=== PATIENT | female | born 1935 | race Caucasian/White ===

== ENCOUNTER 2016-10-29 14:24 | Observation (INO) | payer MEDICARE, OTHER ==
--- OUTSIDE RECORDS SUMMARY | 2016-10-29 14:29 | XMS REPORT | Continuity of Care Document ---
:1935 Author Organization [facility] Address Unavailable [place] [address] Care Team Providers Name Role Phone MickieKelechi magaña Primary Care Provider [phone] Source Comments This disclosure is being made pursuant to the [employer]uity [employer] program and maynot contain all information available regarding this patient.[facility] Active Allergies and Adverse Reactions No Known Allergies Current Medications Be aware that medications may not be up to date as of this document. Alwaysverify current medications with the patient. Prescription Sig. Disp. Refills Start Date End Date Status HYDROcodone-acetaminoph Take 1-2 tablets 60 tablet 0 10/27/2014 Active en (NORCO) 5-325 MG per by mouth every 4 tablet (four) hours as needed for Pain. aspirin 81 MG EC tablet Take 81 mg by Active mouth daily. Glucose Blood (ASCENSIA by In Vitro Active BREEZE 2 ) route. saline (AYR) 0.65 % 1 spray by Nasal Active (SOLN) nasal spray route 2 (two) times daily as needed for Congestion. SIMVASTATIN PO Take 0.5 tablets Active by mouth daily. GLIPIZIDE PO Take 2 tablets by Active mouth 2 (two) times daily. ENALAPRIL-HYDROCHLOROTH Take 1 tablet by Active IAZIDE PO mouth 2 (two) times daily. metoprolol tartrate Take 50 mg by Active (LOPRESSOR) 50 MG mouth 2 (two) tablet times daily. metFORMIN (GLUCOPHAGE) Take 250 mg by Active 500 MG tablet mouth 2 (two) times daily with meals. metformin (GLUCOPHAGE) Take 1,000 mg by Active 1000 MG tablet mouth 2 (two) times daily with meals. LEVOTHYROXINE SODIUM PO Take by mouth. Active Active Problems Problem Noted Date Aftercare following surgery of the musculoskeletal system, NEC 11/20/2014 Pain in joint, hand 11/20/2014 Stiffness of joint, not elsewhere classified, hand 11/20/2014 Dupuytren's contracture 10/27/2014 Most Recent Encounters Date Type Specialty Providers Description 10/18/2016 Data Import Social History Tobacco Use Types Packs/Day Years Used Date Former Smoker Alcohol Use Drinks/Week oz/Week Comments No Last Filed Vital Signs Vital Sign Reading Time Taken Blood Pressure 150/61 12/06/2014 2:57 PM CDT Pulse 76 10/27/2014 11:28 AM CDT Temperature - - Respiratory Rate 16 10/27/2014 11:28 AM CDT Height 1.57 m (5' 1.8") 12/06/2014 2:57 PM CDT Weight 83.008 kg (183 lb) 12/06/2014 2:57 PM CDT Body Mass Index 33.68 12/06/2014 2:57 PM CDT Oxygen Saturation - - Plan of Care Health Maintenance Due Date Last Done Comments Lab-Lipids 1935 LAB-HgA1C 12/19/1939 Eye (Ophthalmology) Exam 1944 Foot Exam 1944 Lab-Urine Microalbumin 1944 Tetanus/Pertussis (1 - Tdap) 1953 Well Adult Visit 1984 Zoster Vaccine 60+ 1994 Bone Density 12/19/1999 Pneumococcal Low/Medium Risk 65+ (1 of 2 - PCV13) 12/19/1999 Influenza Immunization (#1) 2016 Results from Last 3 Months Not on file
--- OUTSIDE RECORDS SUMMARY | 2016-10-29 14:29 | XMS REPORT | Continuity of Care Document ---
:1935 Author Organization [facility] ([facility]) Address [address] [place] [address] Phone [phone] Care Team Providers Name Role Phone Provider, No-Primary Care Primary Care Provider Unavailable Source Comments This disclosure is being made pursuant to the Care Everywhere program, applicable federal and state laws, and may not contain all informaitonavailable regarding this patient.[facility] ([facility]) Active Allergies and Adverse Reactions Not on File Current Medications Not on file Active Problems Not on file Social History Tobacco Use Types Packs/Day Years Used Date Never Assessed Plan of Care Health Maintenance Due Date Last Done Comments Hepatitis B Vaccine (1 of 3 - Primary Series) 1935 Tdap Vaccine 1945 Lipid Disorder Screening 1952 Td Vaccine 1952 Colonoscopy 12/17/1984 Zoster Vaccine 1994 Osteoporosis Screening (DXA Bone Density) 12/19/1999 Pneumococcal Vaccine (1 of 2 - PCV13) 12/19/1999 Influenza Vaccine: Seasonal (#1) 02/20/2016 Results from Last 3 Months Not on file
[2016-10-29 14:43] LABS: Hematocrit 27.7 % (37.0-47.0); Hemoglobin 9.2 gm/dL (12.5-16.0); Mean Cell Volume 84.7 fl (78-100); Mean Corpuscular Hemoglobin 28.1 pg (27-31); Mean Corpuscular Hgb Conc 33.2 g/dl (32-36); Mean Platelet Volume 9.7 fl (6.0-9.5); Neutrophil % 76.7 % (42-75.0); Platelet Count 237 K/mm3 (150-450); Red Blood Count 3.27 M/mm3 (4.2-5.4); Red Cell Distribution Width 16.3 % (11.5-14.0); White Blood Count 6.5 K/mm3 (4.0-10.5)
[2016-10-29 15:01] LABS: Troponin I 0.024 ng/ml (0.00-0.10)
[2016-10-29 15:03] LABS: Albumin * 3.5 gm/dl (3.4-5.0); Anion Gap 15.6 mmol/L (6.8-13.8); BUN/Creatinine Ratio 9.6 (9.0-21.6); Bilirubin, Total 0.5 mg/dL (0.0-1.1); Ca. Corrected For Albumin 8.5 mg/dL (8.4-10.2); Calcium * 8.4 mg/dL (7.9-10.9); Carbon Dioxide 24.3 mmol/L (24-32.6); Potassium 3.9 mmol/L (3.4-4.6); Total Protein 7.6 gm/dL (6.2-8.2)
[2016-10-29] MEDS ORDERED: METOLAZONE 2.5 MG TABLET PO ONE (16:30)
[2016-10-29 16:36] LABS: Iron 20 mcg/dL (35-120); Transferrin Sat. (% Sat.) 5 % (15-55)
[2016-10-29] MEDS ORDERED: FUROSEMIDE 10 MG/ML VIAL IV ONE (17:00)
[2016-10-29] MEDS ORDERED: SPIRONOLACTONE 25 MG TABLET PO ONE (17:00)
--- NOTE | 2016-10-29 17:00 | HP ---
Chief Complaint - Chief Complaint Date of Service: 10/29/16 Time of Service: 16:58 Chief Complaint: Swelling in her feet and shortness of breath for the last 2-3 days. History of Present Illness: Patient is a 80-year-old WF with a history of HTN, T2 DM, HLD, hypothyroidism, B12 deficiency who came in to the office with her granddaughter because of SOB, DELACRUZ and swelling in her feet for the last 2-3 days. She denies H/O palpitations , CP, lightheadedness, PND/orthopnea. Examination revealed few crackles and 2+ edema in lower extremities. Significant labs: H/H 9.2/27.7, BNP 2666, EKG-A. fib [prior EKG NSR]. She was admitted into observation for further care and treatment on 10/29/2016. 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 Patient History - Cancer: No Hx of Cancer Additional Info: PAST SURGICAL HISTORY: T&A 194; D&C 1956; I UD insertion now embedded 1969; colonoscopy WNL 2005; DAMIEN 2007; EGD with biopsy-pangastritis, CLOtest -2008. Patient History - Other: None LMP (females 10-50): unknown - Family History Mother Family History - Medical: - 79HTN, DM, PCM Father Family History - Medical: - 86HTN, DM, CAD, CRF - Social History Living Situations: alone Abuse History: No History of abuse Psych History: No pertinent hx Smoking Status: Former smoker - 1 PPD 40 years Have you smoked in the past 12 months: No Do you dip or chew tobacco: No Smoking Stop Date: 10/08/93 Patient requests Smoking Cessation Consult: No Initiate information on Smoking Cessation: No Alcohol Use: rarely Drug Use: none - Immunizations Immunizations Up to Date: Yes Hx Pneumococcal Vaccination: Yes History of Influenza Vaccine: Yes Review Of Systems (GEN) - Review of Systems Generalized/Overall Review: Present: Fatigue. Absent: Diaphoresis Respiratory: Present: Cough, Shortness of Breath. Absent: Wheezing Cardiac: Present: Edema. Absent: Chest Pain Abdominal: Absent: Nausea, Vomiting Musculoskeletal: Absent: Joint Pain, Back Pain Neurological: Absent: Headache, Anxiety, Depressed Immunizations: IMMUNIZATION HX Immunizations Up to Date Yes History of Influenza Vaccine Yes Hx Pneumococcal Vaccination Yes Allergies/Adverse Reactions: Allergies Allergy/AdvReac Type Severity Reaction Status Date / Time Iodinated Contrast Media - Allergy Unknown Verified 10/29/16 16:10 Oral and Sulfa (Sulfonamide AdvReac Intermediate Severe Verified 10/29/16 16:10 Antibiotics) nausea Home Medications: HOME MEDICATIONS Aspirin [Aspirin EC] 81 mg PO DAILY 03/28/16 [Last Taken Unknown] Levothyroxine Sodium [Synthroid] 200 mcg PO DAILY 03/28/16 [Last Taken Unknown] Metoprolol Tartrate [Lopressor] 25 mg PO BID 03/28/16 [Last Taken Unknown] Simvastatin [Zocor] 10 mg PO DAILY 03/28/16 [Last Taken Unknown] glipiZIDE [Glucotrol Xl] 10 mg PO BID 03/28/16 [Last Taken Unknown] metFORMIN HCL [Metformin HCl ER] 1,250 mg PO BID 03/28/16 [Last Taken Unknown] Cholecalciferol [Vitamin D] 1,000 unit PO DAILY 10/29/16 [Last Taken Unknown] Cyanocobalamin (Vitamin B-12) [Vitamin B12] 1,000 mcg PO DAILY 10/29/16 [Last Taken Unknown] Pioglitazone HCl [Actos] 30 mg PO DAILY 10/29/16 [Last Taken Unknown] Ranitidine HCl [Acid [employer]] 150 mg PO HS PRN 10/29/16 [Last Taken Unknown] Exam - Exam Vital Signs: Vital Signs - Last Taken Temp 36.5 C 10/29/16 14:32 Pulse 70 10/29/16 14:32 Resp 20 10/29/16 14:32 BP 188/98 10/29/16 14:32 Pulse Ox 95 10/29/16 14:32 Constitutional: Present: Elderly, Obese - alert and oriented x3. ENT Exam: Present: pharynx normal, moist mucous membranes Eye Exam: bilateral eye: PERRL, EOMI Neck: Present: normal inspection, trachea midline Respiratory: Present: decreased breath sounds, crackles - at the bases. Absent : no accessory muscle use Cardiovascular/Chest: Present: regular rate, rhythm. Absent: tachycardia Peripheral Pulses: carotid (R): 2+, carotid (L): 2+ Abdomen: Present: Normal bowel sounds, soft, nontender, nondistended, obese /Rectal: Present: Exam deferred Extremity: Present: normal inspection, lower extremity edema Skin Exam: Present: warm/dry, pallor Eye contact: Present: cooperative, good eye contact, normal speech Diagnostic Studies: Laboratory Tests 10/29/16 14:35 WBC 6.5 Hgb 9.2 L Hct 27.7 L Plt Count 237 10/29/16 14:35 Plasma Sodium 136 Potassium 3.9 Chloride 98 Carbon Dioxide 24.3 BUN 11 Creatinine 1.14 Est GFR (Non-Af Amer) 49 L Random Glucose 217 H Calcium Adj for Albumin 8.5 Total Bilirubin 0.5 AST 22 ALT 20 Alkaline Phosphatase 39 L Total Protein 7.6 Albumin 3.5 magnesium 1.1 10/29/16 14:33 Iron 20 L TIBC 389 Transferrin % Sat 5 L Troponin I 0.024 B-Natriuretic Peptide 2666 H TSH 0.413 CXR 10/29/16: 14:31. 1. Mildly enlarged cardiac silhouette. 2. Mild prominence of interstitial markings in both lung bases with tiny effusions, suggesting mild interstitial edema. Correlation required EKG: New onset A. fib rate 60-70/m w/o acute changes. Assessment/Plan - Narrative Narrative: 1. New-onset CHF: Confirmed by clinical exam and CXR. Metolazone 1.25 mg PO x1 followed by furosemide 60 mg IV 1 and spironolactone 25 mg PO x1 30 min later. BNP 2666. Troponin negative. Daily weights; strict I'/O's. Obtain echocardiogram in a.m. BMP in AM. 2. New-onset A. fib: Check TSH. Lanoxin 0.25 mg IV every 6 hours and and diltiazem PO. Hold Lanoxin if HR below 80/m. 3. Iron deficiency anemia: H&H dropped from 11.0/32.0 [09/20/16] to 9.2/27.7[10/29/16] - could be dilutional due to CHF/true drop. T sat 5%; B12 pending at the time of dictation. Hemoccult all stools. Last colonoscopy in 2005. 4. T2 DM with microalbuminuria: A1c 8.3 [09/20/2016] at which time Actos was added. D/C Actos due to current CHF. D/C glipizide. Discussed this with patient. Add Lantus 20 units at bedtime. 5. Hypertension: Patient on lisinopril 30 mg PO daily and metoprolol 25 mg PO BID. D/C metoprolol and add diltiazem ER 180 mg PO HS which should help control HR and help with albuminuria. 6. Anticoagulation: Discussed colonoscopy, drop in H&H, anemia and warfarin. Patient would prefer getting a colonoscopy prior to going on anticoagulation. 7. Hypomagnesemia: Magnesium level at 1.1. Patient asymptomatic. Occasional PVCs. Magnesium oxide 400 mg PO x2 doses tonight, and again in AM. 8. Hypothyroidism: Patient on levothyroxine 200 g PO daily. TSH WNL at 0.413.
[2016-10-29] MEDS ORDERED: FAMOTIDINE 20 MG TABLET PO PRN (18:30)
[2016-10-29] MEDS ORDERED: DILTIAZEM HCL 240 MG CAP.SR.24H PO SCH (18:45)
[2016-10-29] MEDS: DIGOXIN 0.25 MG/ML AMPUL IV SCH (19:44)
[2016-10-29] MEDS: MAGNESIUM OXIDE 400 MG TABLET PO SCH (19:46)
[2016-10-29] MEDS ORDERED: INSULIN GLARGINE,HUM.REC.ANLOG 100 UNITS/ML VIAL SC ONE (20:00)
[2016-10-29] MEDS ORDERED: DILTIAZEM HCL 180 MG CAP.SR.24H PO SCH (20:00)
[2016-10-29] MEDS ORDERED: METOPROLOL TARTRATE 50 MG TABLET PO SCH (21:00)
[2016-10-29] MEDS ORDERED: LISINOPRIL 10 MG TABLET PO SCH (21:00)
[2016-10-30] MEDS: MAGNESIUM OXIDE 400 MG TABLET PO SCH ×3 (00:11→12:57)
[2016-10-30] MEDS: DIGOXIN 0.25 MG/ML AMPUL IV SCH ×2 (00:17→05:57)
[2016-10-30 05:53] LABS: Anion Gap 9.4 mmol/L (6.8-13.8); BUN/Creatinine Ratio 11.5 (9.0-21.6); Calcium * 9.5 mg/dL (7.9-10.9); Carbon Dioxide 34.8 mmol/L (24-32.6); Estimated Creat Clear 34.7; Potassium 3.2 mmol/L (3.4-4.6)
[2016-10-30] MEDS ORDERED: LEVOTHYROXINE SODIUM 100 MCG TABLET ONE (06:26)
[2016-10-30] MEDS ORDERED: LEVOTHYROXINE SODIUM 25 MCG TABLET PO SCH (07:00)
[2016-10-30] MEDS ORDERED: LISINOPRIL 20 MG TABLET PO SCH (09:00)
[2016-10-30] MEDS ORDERED: MAGNESIUM OXIDE 400 MG TABLET PO SCH (09:00)
--- NOTE | 2016-10-30 09:02 | DS ---
(1) Heart failure with preserved left ventricular function (HFpEF) Diagnosis(s): EF 65%, mild MR, trace TR, RVSP 32 mm Hg, LV hyperdynamic, LVWM normal. Problem: Acute (2) New onset a-fib Problem: Acute (3) Fe deficiency anemia Diagnosis(s): with Tsat 5% Problem: Acute Qualifiers: Iron deficiency anemia type: unspecified iron deficiency Qualified Code(s) : D50.9 - Iron deficiency anemia, unspecified (4) Diabetes mellitus type 2 with complications, uncontrolled Diagnosis(s): renal and ophthalmic. Problem: Chronic (5) Obesity Diagnosis(s): BMI-35.0 Problem: Chronic Description of Stay: DATE OF ADMISSION: 10/29/2016. DATE OF DISCHARGE: 10/30/2016. DIAGNOSTICS: 2-D ECHOCARDIOGRAM: 10/30/2016. HOSPITAL COURSE: Tri Roche is a 80-year-old WF who was admitted on 10/29/2016 due to bilateral L.L.E., SOB and DELACRUZ. PMH is significant for HTN, T2 DM, HLD, hypothyroidism, B12 deficiency and obesity[ BMI-35.0]. Findings included new onset A. fib, CHF and anemia.[ BNP 2666]. CHF was confirmed by CXR which showed interstitial edema and and enlarged cardiac silhouette. Patient was diuresed with improvement in her CHF, sob and edema. There was improvement in her weight. There was a drop in H&H from 11.0/32.0 [09/20/16] to 9.2/27.7 [10/29/16] with Tsat 5%. B12 426 pg per mL. Hemoccult was negative. Last colonoscopy was in 2005. She did develop A. fib with RVR with a heart rate of 120-130/ min which was controlled with Lanoxin 0.25 mg IV every 6 hours. She was switched over to diltiazem ER 240 mg PO HS which should help with controlling heart rate. Metoprolol was DC'd. Echocardiogram: 10/29/2016: EF 65%, mild MR, mild TR, RVSP 32 mm Hg. Pioglitazone 30 mg and glipizide were discontinued. Lantus 30 units at bedtime was started. Continue metformin ER 500 mg 2 tabs PO BID WM. Patient did have a low magnesium level of 1.1. This was corrected in the hospital. She was advised to go on magnesium oxide 400 mg daily. Discussed in detail regarding anticoagulation, anemia, drop in H&H and EGD/ colonoscopy. Patient would like to have a workup prior to going on anticoagulation. The risks and benefits of not being on a blood thinner with increased incidence of a stroke vs bleeding were explained to the patient and the family. She will be on a regular aspirin 325 mg instead of 81 mg daily. Patient is to receive Feraheme 510 mg IV 2 and an outpatient basis approximately 10 days apart. All the medication changes were clearly explained to the patient. Greater than 60 minutes was spent with the patient discussing the plan of care , discharging planning, reconciliation of medications, preparing and dictating discharge summary. Procedures Performed: none Results and Findings: 10/29/16 14:35 WBC 6.5 Hgb 9.2 L Hct 27.7 L Plt Count 237 10/29/16 10/30/16 14:35 05:20 Plasma Sodium 136 136 Potassium 3.9 3.2 L Chloride 98 95 L Carbon Dioxide 24.3 34.8 BUN 11 11 Creatinine 1.14 0.96 Est GFR (Non-Af Amer) 49 L 59 L Random Glucose 217 H 118 Calcium Adj for Albumin 8.5 9.5 Total Bilirubin 0.5 AST 22 ALT 20 Alkaline Phosphatase 39 L Total Protein 7.6 Albumin 3.5 magnesium 1.1 1.0 L 10/29/16 14:33 Iron 20 L TIBC 389 Transferrin % Sat 5 L Troponin I 0.024 B-Natriuretic Peptide 2666 H TSH 0.413 CXR 10/29/16: 14:31. 1. Mildly enlarged cardiac silhouette. 2. Mild prominence of interstitial markings in both lung bases with tiny effusions, suggesting mild interstitial edema. Correlation required EKG: New onset A. fib rate 60-70/m w/o acute changes. ECHOCARDIOGRAM: 10/30/2016: EF 65%. LV hyperdynamic. Mild MR, trace TR, RVSP 32 mm Hg. 10/29/16 10/30/16 14:32 05:03 Weight 89.471 kg 85.275 kg 10/30/16 10/30/16 07:58 12:50 Stool Occult Blood Negative Negative Discharge Disposition: Home self care Disposition: Home self-care Condition: Stable Discharge Activity: Activity as tolerated Discharge Diet: Consistent carbs, Low fat/chol Referrals: Kelechi Garcia MD [Primary Care Provider] - Problem Oriented Discharge Instructions to Patient/Family: CHF Patient Instructions Additional Patient Instructions (free text): Follow up with Dr. Jauregui 4.20 at 1:30. for possible EGD/ Colonoscopy -Fe def. anemia. Please give information to patient on afib Follow up with Dr. Culp 11/02 at 9:45 Feraheme IV to be given in [facility] [place] today(10/30/16) and on 11/09/16. Please arrange through the [place] for Feraheme to be given as outpatient approximately 10 days apart. Aspirin 325 mg, magnesium oxide 400 mg and vitamin D3 2000 units are over-the- counter [OTC] and may be cheaper if bought in a bottle in a 100. Please stagger BS once a day. NEW/NEW DOSES of Medications: Aspirin 325 mg PO daily. Magnesium oxide 400 mg PO daily. Lantus 30 units SQ at bedtime. Diltiazem ER 240 mg PO at bedtime. Metformin ER 500 mg 2 tabs PO BID WM. Atorvastatin 10 mg PO daily. Vitamin D3 2000 units PO daily w/food DISCONTINUED medications : Actos. Glipizide. Metformin 1250 mg PO BID. Simvastatin 10 mg. ASA 81 mg daily. Vitamin D3 1000 units daily. Prescriptions (Any new or edited meds): Aspirin [Aspirin EC] 325 mg PO DAILY #[address] tablet[address] Randall Calcium 10 mg PO DAILY #30 tablet Cholecalciferol [Vitamin D] 2,000 unit PO DAILY #100 capsule Diltiazem HCl [Cardizem Cd] 240 mg PO HS #30 cap.sr.24h Ferumoxytol [Feraheme] 510 mg IV Q10D #2 vial Insulin Glargine,Hum.rec.anlog [Lantus] 30 units SC HS #1 vial Lisinopril [Zestril] 30 mg PO DAILY@0700 #.1 tablet metFORMIN HCL [Glucophage Xr] 1,000 mg PO BIDWM #180 tab.sr.24h Complete Home Medications List: Complete Home Medication List: Levothyroxine Sodium [Synthroid] 200 mcg PO DAILY@0700 03/28/16 Cyanocobalamin (Vitamin B-12) [Vitamin B12] 1,000 mcg PO DAILY 10/29/16 Aspirin [Aspirin EC] 325 mg PO DAILY #30 tablet. 10/30/16 Atorvastatin Calcium 10 mg PO DAILY #30 tablet 10/30/16 Cholecalciferol [Vitamin D] 2,000 unit PO DAILY #100 capsule 10/30/16 Diltiazem HCl [Cardizem Cd] 240 mg PO HS #30 cap.sr.24h 10/30/16 Ferumoxytol [Feraheme] 510 mg IV Q10D #2 vial 10/30/16 Insulin Glargine,Hum.rec.anlog [Lantus] 30 units SC HS #1 vial 10/30/16 Lisinopril [Zestril] 30 mg PO DAILY@0700 #.1 tablet 10/30/16 metFORMIN HCL [Glucophage Xr] 1,000 mg PO BIDWM #180 tab.sr.24h 10/30/16 Amb Orders for Discharge: Basic Metabolic Panel Time Frame: 10/26/16, Location: Determined By Patient
[2016-10-30] MEDS ORDERED: SPIRONOLACTONE 100 MG TABLET PO ONE (09:45)
[2016-10-30 10:10] VITALS: BP 159/49
[2016-10-31] MEDS ORDERED: LEVOTHYROXINE SODIUM 100 MCG TABLET PO SCH (07:00)
--- NOTE | 2016-10-31 09:16 | ECHO ---
This report is available in the EMR
== END 2016-10-30 16:16 | disposition home or self-care (01) ==
LOC: MS 14:24
PROVIDERS: ADMIT Internal Medicine; ATTEND Internal Medicine
DX: I50.31 Acute diastolic (congestive) heart failure (principal); E03.9 Hypothyroidism, unspecified; D50.9 Iron deficiency anemia, unspecified; I48.91 Unspecified atrial fibrillation; E66.9 Obesity, unspecified; I10 Essential (primary) hypertension; E78.5 Hyperlipidemia, unspecified; E53.8 Deficiency of other specified B group vitamins; Z87.891 Personal history of nicotine dependence; E11.9 Type 2 diabetes mellitus without complications; R80.9 Proteinuria, unspecified
CPT/HCPCS: 36415; 71020; 80048; 80053; 82272; 82607; 83540; 83550; 83735; 83880; 84443; 84484; 85025; 93005; 93306; 96374; 96375; 96376; G0378; G0379

== ENCOUNTER 2016-11-27 07:05 | Day surgery (SDC) | payer MEDICARE, OTHER ==
[~2016-11-27 07:05] MED LIST: RINGERS SOLUTION,LACTATED 1,000 ML IV PRN
--- OUTSIDE RECORDS SUMMARY | 2016-11-27 07:09 | XMS REPORT | Continuity of Care Document ---
:1935 Author Organization [facility] ([facility]) Address [place] [address] Phone [phone] Care Team Providers Name Role Phone Provider, No-Primary Care Primary Care Provider Unavailable Source Comments This disclosure is being made pursuant to the Care Everywhere program, applicable federal and state laws, and may not contain all informaitonavailable regarding this patient.[facility] ([facility]) Active Allergies and Adverse Reactions Not on [...]
--- OUTSIDE RECORDS SUMMARY | 2016-11-27 07:09 | XMS REPORT | Continuity of Care Document ---
:1935 Author Organization [facility] Address Unavailable [place] [address] Care Team Providers Name Role Phone MickieKelechi magaña Primary Care Provider [phone] Source Comments This disclosure is being made pursuant to the [employer] program and maynot contain all information available regarding this patient.[facility] Active Allergies and Adverse Reactions No Known [...] elsewhere classified, hand 11/20/2014 Dupuytren's contracture 10/27/2014 Social History Tobacco Use Types Packs/Day Years [...]
[2016-11-27] MEDS ORDERED: DEXTROSE 5%-LACTATED RINGERS 1,000 ML IV ONE (07:51)
[2016-11-27 10:00] VITALS: BP 143/74
--- NOTE | 2016-11-27 15:21 | OR ---
Operative Report - Dictated Report Narrative: Date: 11/27/2016 Preop Diagnosis: Anemia, GERD, Abdominal discomfort Postop Diagnosis: EGD: Diffuse gastritis, Hiatal Hernia. Colonoscopy: Severe diverticulosis, Polyp at 50 cm. Procedure: Esophagogastrodeuodenoscopy, Colonoscopy. Staff surgeon: Tevin Tanner MD Proctoring surgeon: Chucky Jones MD Complications: Bradycardia during colonoscopy Anesthesia: MAC per [employer] EBL: Minimal Description: Informed consent was obtained. Patient was taken to the endoscopy suite and placed in the supine position. Bite block was inserted. IV sedation was administered per [employer]. Endoscope inserted through bite block. Advanced under direct vision trough the posterior pharynx, through the esophagus through the stomach, into the duodenum. The duodenum was grossly normal without ulceration. The stomach had moderately severe diffuse gastritis without ulceration. Retroflex view shows small hiatal hernia. Antral cold biopsy taken for GAGE test and anatomic pathology. Slight reflux esophagitis at GE junction. Cold biopsy taken of this finding. Scope was withdrawn with no additional findings. She tolerated this portion of the procedure well. Patient was placed in the left lateral decubitus position. Flexible video colonoscopy is introduced and advanced without difficulty to 50 cm where a polyp is encountered. This is biopsied with hot forceps and residual polyp is destroyed with electrocautery. The scope was advanced to mid-transverse when the patient experienced significant bradycardia and therefore the scope was withdrawn. No other abnormalities were identified to that point othere than severe sigmoid diverticulosis. The procedure was terminated at this point even though her heart rate had returned to normal. The patient otherwise tolerated these procedures well and was discharged from the endoscopy suite in stable condition.
== END 2016-11-27 07:06 | disposition home or self-care (01) ==
LOC: AMB 07:05
PROVIDERS: ATTEND Specialist
PROC: 0DBE8ZX Excision of Large Intestine, Via Natural or Artificial Opening Endoscopic, Diagnostic (ICD-10-PCS; 2016-11-27)
PROC: 0DB48ZX Excision of Esophagogastric Junction, Via Natural or Artificial Opening Endoscopic, Diagnostic (ICD-10-PCS; principal; 2016-11-27 08:00)
PROC: 0DB68ZX Excision of Stomach, Via Natural or Artificial Opening Endoscopic, Diagnostic (ICD-10-PCS; 2016-11-27 08:00)
DX: Z12.11 Encounter for screening for malignant neoplasm of colon (principal); K63.5 Polyp of colon; K57.30 Diverticulosis of large intestine without perforation or abscess without bleeding; K29.70 Gastritis, unspecified, without bleeding; K44.9 Diaphragmatic hernia without obstruction or gangrene; K22.70 Barrett's esophagus without dysplasia; K21.9 Gastro-esophageal reflux disease without esophagitis; E11.9 Type 2 diabetes mellitus without complications; I10 Essential (primary) hypertension; E03.9 Hypothyroidism, unspecified; Z87.891 Personal history of nicotine dependence; Z68.34 Body mass index [BMI] 34.0-34.9, adult; Z80.0 Family history of malignant neoplasm of digestive organs

== ENCOUNTER 2017-01-10 22:09 | Emergency (ER) | payer MEDICARE, OTHER ==
--- OUTSIDE RECORDS SUMMARY | 2017-01-10 22:44 | XMS REPORT | Continuity of Care Document ---
:1935 Author Organization [facility] Address Unavailable [place] [address] Care Team Providers Name Role Phone MickieKelechi magaña Primary Care Provider [phone] Source Comments This disclosure is being made pursuant to the [employer] program and maynot contain all information available regarding this patient.[facility] Active Allergies and Adverse Reactions No Known [...]
[2017-01-10] MEDS ORDERED: ACETAMINOPHEN 325 MG TABLET PO ONE (22:51)
[2017-01-10] MEDS ORDERED: ACETAMINOPHEN 325 MG TABLET ONE (23:01)
[2017-01-10 23:12] VITALS: BP 123/74
[2017-01-10 23:19] LABS: Urine Bilirubin Negative (NEGATIVE); Urine Ketone Negative (NEGATIVE); Urine Nitrite Negative (NEGATIVE); Urine Protein 30 mg/dL (NEGATIVE); Urine Specific Gravity <=1.005 SP.GR. (1.005-1.010); Urine Urobilinogen Normal (NORMAL)
[2017-01-10 23:31] LABS: Urine Appearance Clear; Urine Bacteria 2+; Urine Blood 5 /ul (NEGATIVE); Urine Color Yellow; Urine RBC 0-5 /hpf (0-5); Urine WBC 0-5 /hpf (0-5)
--- NOTE | 2017-01-10 23:52 | ERNOTE ---
Back Pain ER HPI Date of Service: 01/10/17 Time Seen by Provider: 01/10/17 22:31 Source: patient Exam Limitations: no limitations Immunizations: IMMUNIZATION HX Immunizations Up to Date Yes History of Influenza Vaccine Yes Hx Pneumococcal Vaccination Yes Allergies/Adverse Reactions: Allergies Iodinated Contrast Media - Oral and Allergy (Unknown, Verified 11/27/16 07:24) Other affected blood sugars Sulfa (Sulfonamide Antibiotics) Adverse Reaction (Intermediate, Verified 07:24) Severe nausea Home Medications: HOME MEDICATIONS Levothyroxine Sodium [Synthroid] 200 mcg PO DAILY@0700 03/28/16 [Last Taken Unknown] Aspirin [Aspirin EC] 325 mg PO DAILY #30 tablet.dr 10/30/16 [Last Taken Unknown] Diltiazem HCl [Cardizem Cd] 240 mg PO HS #30 cap.sr.24h 10/30/16 [Last Taken Unknown] Insulin Glargine,Hum.rec.anlog [Lantus] 30 units SC HS #1 vial 10/30/16 [Last Taken Unknown] Lisinopril [Zestril] 30 mg PO DAILY@0700 #.1 tablet 10/30/16 [Last Taken Unknown ] metFORMIN HCL [Glucophage Xr] 1,000 mg PO BIDWM #180 tab.sr.24h 10/30/16 [Last Taken Unknown] Atorvastatin Calcium [Lipitor] 10 mg PO HS 11/12/16 [Last Taken Unknown] Cholecalciferol (Vitamin D3) [Vitamin D3] 2,000 unit PO DAILY 11/12/16 [Last Taken Unknown] Magnesium 400 mg PO DAILY 11/12/16 [Last Taken Unknown] Ranitidine HCl [Zantac] 150 mg PO HS 11/12/16 [Last Taken Unknown] Cyanocobalamin (Vitamin B-12) [Vitamin B12] 2,500 mcg PO DAILY 11/27/16 [Last Taken Unknown] Narrative: 81 year old that has been having lower back pain for several years. Over the last three days the pain at the lower back has increased, and radiates to the left. Denies any abdominal pain, radiation to the lower extremities, fevers, chill, or N/V. Denies taking any pain medications for the pain. The pain is worsened by movement. Date (Duration): 01/10/17 Timing: Reports: constant, getting worse Quality/Severity: Reports: severe Location of pain: Reports: lower back Activities at Onset: Reports: activity Possible Precipitating Factor: Reports: turning/bending Modifying Factors - (Improves): Reports: other - being still Modifying Factors - (Worsens): Reports: other - movement Associated Symptoms: Denies: numbess/weakness in legs Prior Treament: Denies: treated by physician Review of Systems - Review of Systems Constitutional: Present: no symptoms reported EYE: Present: no symptoms reported ENT: Present: no symptoms reported Respiratory: Present: no symptoms reported Cardiology: Present: no symptoms reported Gastrointestinal/Abdominal: Present: no symptoms reported Genitourinary: Present: no symptoms reported Musculoskeletal: Present: no symptoms reported Skin: Present: no symptoms reported Neurological: Present: no symptoms reported Endocrine: Present: no symptoms reported - Patient's Past Medical History Patient History - Medical: Anemia, Arthritis, Diabetes Type 2 Insulin Dependent , GERD, Hypothyroidism, Other - CKD stage 3 Patient History - Cardiac/Respiratory: CHF, Hypertension, Hyperlipidemia Patient History - Cancer: No Hx of Cancer Patient History - Surgical Procedures: Colonoscopy, D & C, T & A Patient History - Other: None - Family History Mother Family History - Medical: , Diabetes Type 2 Family History - Cardiac/Respiratory: Hypertension, Other Family History - Cancer: No pertinent family hx Father Family History - Medical: , Diabetes Type 2 Family History - Cardiac/Respiratory: Hypertension, Other Family History - Cancer: Other - Social History Living Situations: alone Abuse History: No History of abuse Psych History: No pertinent hx Smoking Status: Former smoker Alcohol Use: rarely Drug Use: none - Immunizations Immunizations Up to Date: Yes Hx Pneumococcal Vaccination: Yes History of Influenza Vaccine: Yes Physical Exam - Physical Exam General Appearance: Present: alert, no apparent distress Eye Exam: Normal inspection: bilateral Ears, Nose, Throat: Present: normal ENT inspection Neck: Present: normal inspection Respiratory: Present: no respiratory distress Cardiovascular/Chest: Present: regular rate, rhythm Gastrointestinal/Abdominal: Present: nontender Back Exam: Present: normal inspection, no CVA tenderness, no vertebral tenderness, decreased range of motion Extremity Exam: Present: normal inspection Neurological Exam: Present: alert, oriented, normal mood/affect Skin Exam: Present: normal color ED Progress - Results and Orders Patient's Lab Results:: I have reviewed the patient's lab results. - Vital Signs Patient's Vital Signs:: I have reviewed the patient's vital signs. Vital Signs: Vital Signs 01/10/17 01/10/17 22:11 23:12 Temperature 36.2 C L Pulse Rate 64 73 Respiratory 16 15 Rate Blood Pressure 153/51 123/74 O2 Sat by Pulse 98 96 Oximetry - X-Ray X-Ray #1 X-Ray: lumbosacral Interpretation: Interp. by me, Reviewed by me X-ray Comments: Severe DJD of the lumbar spine; particularly at L5- S1 with loss of disc space. - Progress/Reassessment Chief Complaint: Back Pain Progress:: Improved Progress Note-Subjective: 01/10/17 23:51 The pain is slightly less since getting the Tylenol. No complaints of UTi symptoms. 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 Referrals: Kelechi Garcia MD [Primary Care Provider] -
== END 2017-01-11 00:02 | disposition home or self-care (01) ==
LOC: ER 22:09
DX: M47.816 Spondylosis without myelopathy or radiculopathy, lumbar region (principal); Z87.891 Personal history of nicotine dependence; E11.9 Type 2 diabetes mellitus without complications; Z79.4 Long term (current) use of insulin; E03.9 Hypothyroidism, unspecified; E78.5 Hyperlipidemia, unspecified; I10 Essential (primary) hypertension; I50.9 Heart failure, unspecified; K21.9 Gastro-esophageal reflux disease without esophagitis; Z79.899 Other long term (current) drug therapy

== ENCOUNTER 2017-01-18 12:43 | Emergency (ER) | payer MEDICARE, OTHER ==
[2017-01-18] MEDS ORDERED: diphenhydrAMINE HCL 50 MG/ML VIAL IV ONE (12:52)
[2017-01-18] MEDS ORDERED: METHYLPREDNISOLONE SOD SUCC/PF 125 MG/2 ML VIAL IV ONE (12:54)
--- OUTSIDE RECORDS SUMMARY | 2017-01-18 13:00 | XMS REPORT | Continuity of Care Document ---
:1935 Author Organization [employer] Address Unavailable [place] [address] Care Team Providers Name Role Phone MickieKelechi magaña Primary Care Provider [phone] Source Comments This disclosure is being made pursuant to the Move In History program and maynot contain all information available regarding this patient.[employer] Active Allergies and Adverse Reactions No Known [...] from Last 3 Months Not on file Insurance Payer Benefit Plan / Group Subscriber ID Type Phone Address MEDICARE MEDICARE A AND B [id number] [phone] [address] [place] [address] COMMERCIAL [employer]CIAL INSURANCE [id number] Home: [address] [phone] [place] [id number]
[2017-01-18] MEDS ORDERED: DIATRIZOATE MEGLU/DIATRIZO SOD 30 ML BTL PO ONE (13:03)
[2017-01-18] MEDS ORDERED: DIATRIZOATE MEGLU/DIATRIZO SOD 30 ML BTL ONE (13:04)
--- NOTE | 2017-01-18 13:08 | ERNOTE ---
Medical Problem HPI - Narrative Date of Service: 01/18/17 - General Chief Complaint: Nausea/Vomiting Time Seen by Provider: 01/18/17 12:51 Source: family, RN notes reviewed, old records Exam Limitations: no limitations - Immun/Allergies/Home Medications Immunizations: IMMUNIZATION HX Immunizations Up to Date Yes History of Influenza Vaccine Yes Hx Pneumococcal Vaccination Yes Allergies/Adverse Reactions: Allergies Iodinated Contrast Media - Oral and Allergy (Unknown, Verified 01/18/17 12:52) Other affected blood sugars Sulfa (Sulfonamide Antibiotics) Adverse Reaction (Intermediate, Verified 12:52) Severe nausea Home Medications: HOME MEDICATIONS Levothyroxine Sodium [Synthroid] 200 mcg PO DAILY@0700 03/28/16 [Last Taken Unknown] Aspirin [Aspirin EC] 325 mg PO DAILY #30 tablet.dr 10/30/16 [Last Taken Unknown] Diltiazem HCl [Cardizem Cd] 240 mg PO HS #30 cap.sr.24h 10/30/16 [Last Taken Unknown] Insulin Glargine,Hum.rec.anlog [Lantus] 30 units SC HS #1 vial 10/30/16 [Last Taken Unknown] Lisinopril [Zestril] 30 mg PO DAILY@0700 #.1 tablet 10/30/16 [Last Taken Unknown ] metFORMIN HCL [Glucophage Xr] 1,000 mg PO BIDWM #180 tab.sr.24h 10/30/16 [Last Taken Unknown] Atorvastatin Calcium [Lipitor] 10 mg PO HS 11/12/16 [Last Taken Unknown] Cholecalciferol (Vitamin D3) [Vitamin D3] 2,000 unit PO DAILY 11/12/16 [Last Taken Unknown] Magnesium 400 mg PO DAILY 11/12/16 [Last Taken Unknown] Ranitidine HCl [Zantac] 150 mg PO HS 11/12/16 [Last Taken Unknown] Cyanocobalamin (Vitamin B-12) [Vitamin B12] 2,500 mcg PO DAILY 11/27/16 [Last Taken Unknown] HYDROcodone/ACETAMINOPHEN [Keller 5-325] 1 each PO Q4H PRN #15 tablet 01/11/17 [ Last Taken Unknown] Ciprofloxacin HCl 500 mg PO BID #20 tablet 01/18/17 [Last Taken Unknown] Meclizine HCl [Antivert] 25 mg PO QID PRN #20 tablet 01/18/17 [Last Taken Unknown] Ondansetron HCl [Zofran] 1 - 2 mg PO Q8H PRN #30 tab 01/18/17 [Last Taken Unknown] metroNIDAZOLE [Flagyl] 500 mg PO Q8H #30 tablet 01/18/17 [Last Taken Unknown] - History of Present History Narrative: This is an 81-year-old female who comes to the emergency department with complaint of nausea, vomiting, abdominal pain, decreased caliber of the stool, dizziness, malaise. The symptoms have been present for at least 3 weeks. A review of the past medical records demonstrates that she was seen on the . At that time I believe she had some basic labs done which were essentially normal. A very slight drop in her hemoglobin. She had a colonoscopy back in November. This demonstrated a single polyp. The colonoscopy could not be completed to the ascending colon origin due to bradycardia. The patient says that whenever she eats she gets severely nauseated and throws up. She says her weight has been fluctuating. She denies having any blood in her stool, but states "I poop pencils" when I asked her what this means she says that the diameter of the stool is about that of a pencil. Patient denies any urinary symptoms. She says that she gets dizzy when she changes position rapidly. This has been present for several months. The patient denies any chest pain, shortness of breath, cough, fever, chills. Timing: intermittent - happens with meals Severity: moderate Modifying Factors - (Improves): Present: other - avoiding food, laying still Modifying Factors - (Worsens): Present: eating, movement Review of Systems - Narrative Narrative: As per HPI - Review of Systems Constitutional: Present: fatigue, malaise EYE: Present: no symptoms reported ENT: Present: no symptoms reported Respiratory: Present: no symptoms reported. Absent: shortness of breath, cough Cardiology: Present: no symptoms reported. Absent: chest pain Gastrointestinal/Abdominal: Present: See HPI, nausea, vomiting, abdominal pain, other - change in the caliber of the stool Genitourinary: Present: no symptoms reported. Absent: frequency, pain, dysuria , decreased urinary output Musculoskeletal: Present: back pain - chronic back pain. No significant recent change Skin: Present: no symptoms reported Neurological: Present: dizziness/light-headedness Endocrine: Present: no symptoms reported Hematologic/Lymphatic: Present: no symptoms reported Psych: Present: no symptoms reported All Other Systems: All systems neg except as marked - Patient's Past Medical History Patient History - Medical: Anemia, Arthritis, Diabetes Type 2 Insulin Dependent , GERD, Hypothyroidism, Other Patient History - Cardiac/Respiratory: CHF, Hypertension, Hyperlipidemia Patient History - Cancer: No Hx of Cancer Patient History - Surgical Procedures: Colonoscopy, D & C, T & A Patient History - Other: None - Family History Mother Family History - Medical: , Diabetes Type 2 Family History - Cardiac/Respiratory: Hypertension, Other Family History - Cancer: No pertinent family hx Father Family History - Medical: , Diabetes Type 2 Family History - Cardiac/Respiratory: Hypertension, Other Family History - Cancer: Other - Social History Living Situations: alone Abuse History: No History of abuse Psych History: No pertinent hx Smoking Status: Former smoker Alcohol Use: rarely Drug Use: none - Immunizations Immunizations Up to Date: Yes Hx Pneumococcal Vaccination: Yes History of Influenza Vaccine: Yes Physical Exam - Physical Exam General Appearance: Present: wd/wn, alert, no apparent distress Eye Exam: Normal inspection: bilateral Ears, Nose, Throat: Present: normal ENT inspection, normal pharynx. Absent: sinus pain/drainage, pharyngeal erythema, pharyngeal swelling Neck: Present: normal inspection, nontender, supple, full range of motion. Absent: lymphadenopathy (L), tender lateral Respiratory: Present: no respiratory distress, normal breath sounds, no accessory muscle use, chest nontender, lungs clear Cardiovascular/Chest: Present: regular rate, rhythm, no murmur Gastrointestinal/Abdominal: Present: other - abdomen is obese, soft, nondistended, mild tenderness suprapubic and bilateral lower quadrants. No rebound or guarding. Rectal Exam: Present: nontender, normal rectal tone, other - Brown stool. Hemoccult sent Back Exam: Present: normal inspection, normal range of motion, no CVA tenderness , no vertebral tenderness Extremity Exam: Present: normal inspection, non-tender, normal range of motion, no edema Neurological Exam: Present: alert, oriented, normal mood/affect, no motor/ sensory deficits, other - very mild non-fatigable nystagmus bilaterally Skin Exam: Present: normal color, warm/dry Lymphatic Exam: Present: no adenopathy Pelvic Exam: Present: deferred ED Progress - Results and Orders Patient's Lab Results:: I have reviewed the patient's lab results. - Vital Signs Patient's Vital Signs:: I have reviewed the patient's vital signs. Vital Signs: Vital Signs 01/18/17 12:44 Temperature 36.5 C Pulse Rate 58 L Respiratory 16 Rate Blood Pressure 152/76 O2 Sat by Pulse 97 Oximetry - CT/Ultrasound CT/Ultrasound Narrative: Patient has an incidental note made of a intrauterine device. There is a small ventral hernia. The patient does have some mild inflammatory changes with bowel wall thickening of the sigmoid colon consistent with possible diverticular disease versus colitis. - Progress/Reassessment Chief Complaint: Nausea/Vomiting Plan - Plan Plan: The patient is going to get some Antivert as she is feeling dizzy when she moves around. The patient is also going to be given antibiotics for possible diverticular disease. She does not have a white count and does not have significant discomfort. I think that this is unlikely but in someone who has been vomiting anything treatment is appropriate. He will follow up with her family doctor. I'm also giving her some Zofran. She is counseled that she needs to return immediately if she develops fever, increased abdominal pain, or any new worrisome symptoms. Departure - Departure Clinical Impression: Diverticulitis Disposition: Home self-care Condition: Stable Instructions: Diverticulitis, [id number] Additional Instructions: As we discussed, the CAT scan shows perhaps some mild inflammation of the colon at the very end. Laboratories and physical examination did not support a significant infection, but I think prudence is appropriate here. Therefore I want you to take the prescribed Flagyl and Levaquin. He should make sure that you take this until it is completely gone. I want you to call your family doctor after the holiday and set up a follow-up appointment. I've given a prescription for meclizine. This is to help with dizziness. If one does not work do not take more than one. This is not a undercover cop more is better. I have also given a prescription for some Zofran. If you continue to have significant nausea when you're eating you can try this to help. If you develop a fever, increased abdominal pain, blood in her stool, or anything new or worrisome I want you to return immediately to the emergency department. Referrals: Kelechi Garcia MD [Primary Care Provider] - Prescriptions: Ciprofloxacin HCl 500 mg PO BID #20 tablet Meclizine HCl [Antivert] 25 mg PO QID PRN #20 tablet PRN Reason: dizziness Ondansetron HCl [Zofran] 1 - 2 mg PO Q8H PRN #30 tab PRN Reason: Nausea metroNIDAZOLE [Flagyl] 500 mg PO Q8H #30 tablet
[2017-01-18 13:14] LABS: Hematocrit 35.5 % (37.0-47.0); Hemoglobin 13.2 gm/dL (12.5-16.0); Mean Corpuscular Hemoglobin 32.4 pg (27-31); Mean Corpuscular Hgb Conc 37.2 g/dl (32-36); Mean Platelet Volume 9.9 fl (6.0-9.5); Neutrophil % 68.5 % (42-75.0); Platelet Count 214 K/mm3 (150-450); Red Blood Count 4.08 M/mm3 (4.2-5.4); Red Cell Distribution Width 19.1 % (11.5-14.0); White Blood Count 7.3 K/mm3 (4.0-10.5)
[2017-01-18] MEDS ORDERED: METHYLPREDNISOLONE SOD SUCC/PF 125 MG/2 ML VIAL ONE (13:18)
[2017-01-18] MEDS ORDERED: diphenhydrAMINE HCL 50 MG/ML VIAL ONE (13:18)
[2017-01-18 13:25] LABS: Anion Gap 14.4 mmol/L (6.8-13.8); BUN/Creatinine Ratio 10.3 (9.0-21.6); Bilirubin, Total 0.6 mg/dL (0.0-1.1); Ca. Corrected For Albumin 8.7 mg/dL (8.4-10.2); Carbon Dioxide 27.3 mmol/L (24-32.6); Potassium 3.7 mmol/L (3.4-4.6); Total Protein 7.8 gm/dL (6.2-8.2)
[2017-01-18 14:33] LABS: Urine Appearance Clear; Urine Bilirubin Negative (NEGATIVE); Urine Color Yellow
[2017-01-18 14:34] LABS: Urine Bacteria None Seen; Urine Blood 25 /ul (NEGATIVE); Urine Ketone Negative (NEGATIVE); Urine Nitrite Negative (NEGATIVE); Urine Protein 30 mg/dL (NEGATIVE); Urine RBC None Seen /hpf (0-5); Urine Specific Gravity 1.005 SP.GR. (1.005-1.010); Urine Urobilinogen Normal (NORMAL); Urine WBC None Seen /hpf (0-5); Urine pH 6.5 pH (5.0-7.0)
[2017-01-18 15:35] VITALS: BP 139/82
[2017-01-18] MEDS ORDERED: MECLIZINE HCL 25 MG TABLET PO ONE (15:59)
[2017-01-18] MEDS ORDERED: MECLIZINE HCL 25 MG TABLET ONE (16:04)
== END 2017-01-18 16:22 | disposition home or self-care (01) ==
LOC: ER 12:43
DX: K57.92 Diverticulitis of intestine, part unspecified, without perforation or abscess without bleeding (principal); E11.9 Type 2 diabetes mellitus without complications; E03.9 Hypothyroidism, unspecified; K21.9 Gastro-esophageal reflux disease without esophagitis

== ENCOUNTER 2017-01-25 13:50 | Emergency (ER) | payer MEDICARE, OTHER ==
[2017-01-25 15:31] LABS: Hematocrit 33.9 % (37.0-47.0); Hemoglobin 12.4 gm/dL (12.5-16.0); Mean Cell Volume 88.3 fl (78-100); Mean Corpuscular Hemoglobin 32.3 pg (27-31); Mean Corpuscular Hgb Conc 36.6 g/dl (32-36); Mean Platelet Volume 9.3 fl (6.0-9.5); Neutrophil # 6.2 K/mm3 (1.3-6.0); Neutrophil % 73.2 % (42-75.0); Platelet Count 214 K/mm3 (150-450); Red Blood Count 3.84 M/mm3 (4.2-5.4); Red Cell Distribution Width 19.7 % (11.5-14.0); White Blood Count 8.4 K/mm3 (4.0-10.5)
[2017-01-25 15:32] LABS: Urine Bilirubin Negative (NEGATIVE); Urine Blood Negative /ul (NEGATIVE); Urine Ketone Negative (NEGATIVE); Urine Nitrite Negative (NEGATIVE); Urine Protein 100 mg/dL (NEGATIVE); Urine Specific Gravity 1.025 SP.GR. (1.005-1.010); Urine Urobilinogen Normal (NORMAL); Urine pH 6.5 pH (5.0-7.0)
[2017-01-25 15:45] LABS: Albumin * 3.7 gm/dl (3.4-5.0); Anion Gap 10.7 mmol/L (6.8-13.8); BUN/Creatinine Ratio 7.5 (9.0-21.6); Bilirubin, Total 0.5 mg/dL (0.0-1.1); Ca. Corrected For Albumin 8.6 mg/dL (8.4-10.2); Calcium * 8.7 mg/dL (7.9-10.9); Carbon Dioxide 28.3 mmol/L (24-32.6); Total Protein 7.3 gm/dL (6.2-8.2)
[2017-01-25 15:45] LABS: Urine Appearance Clear; Urine Bacteria 1+; Urine Color Yellow; Urine RBC None Seen /hpf (0-5); Urine WBC 0-5 /hpf (0-5)
--- OUTSIDE RECORDS SUMMARY | 2017-01-25 15:45 | XMS REPORT | Continuity of Care Document ---
:1935 Author Organization [employer] Address Unavailable [address] [place] [address] Care Team Providers Name Role Phone MickieKelechi magaña Primary Care Provider [phone] Source Comments This disclosure is being made pursuant to the [employer] program and maynot contain all information available regarding this patient.[employer] Active Allergies and Adverse Reactions No Known [...] Phone Address MEDICARE MEDICARE A AND B [id number] [phone] [address] [place] [address] [employer]CIAL [employer] INS[employer] [id number] Home: [address] [phone] [place] [phone]
--- NOTE | 2017-01-25 15:53 | ERNOTE ---
Abdominal HPI - General Chief Complaint: Abdominal Pain Time Seen by Provider: 01/25/17 15:34 Source: patient, family Exam Limitations: no limitations - Immun/Allergies/Home Medications Immunizatons: IMMUNIZATION HX Immunizations Up to Date Yes History of Influenza Vaccine Yes Hx Pneumococcal Vaccination Yes Allergies/Adverse Reactions: Allergies Iodinated Contrast Media - Oral and Allergy (Unknown, Verified 01/18/17 12:52) Other affected blood sugars Sulfa (Sulfonamide Antibiotics) Adverse Reaction (Intermediate, Verified 12:52) Severe nausea Home Medications: HOME MEDICATIONS Levothyroxine Sodium [Synthroid] 200 mcg PO DAILY@0700 03/28/16 [Last Taken Unknown] Aspirin [Aspirin EC] 325 mg PO DAILY #30 tablet. 10/30/16 [Last Taken Unknown] Diltiazem HCl [Cardizem Cd] 240 mg PO HS #30 cap.sr.24h 10/30/16 [Last Taken Unknown] Insulin Glargine,Hum.rec.anlog [Lantus] 30 units SC HS #1 vial 10/30/16 [Last Taken Unknown] Lisinopril [Zestril] 30 mg PO DAILY@0700 #.1 tablet 10/30/16 [Last Taken Unknown ] metFORMIN HCL [Glucophage Xr] 1,000 mg PO BIDWM #180 tab.sr.24h 10/30/16 [Last Taken Unknown] Atorvastatin Calcium [Lipitor] 10 mg PO HS 11/12/16 [Last Taken Unknown] Cholecalciferol (Vitamin D3) [Vitamin D3] 2,000 unit PO DAILY 11/12/16 [Last Taken Unknown] Magnesium 400 mg PO DAILY 11/12/16 [Last Taken Unknown] Ranitidine HCl [Zantac] 150 mg PO HS 11/12/16 [Last Taken Unknown] Cyanocobalamin (Vitamin B-12) [Vitamin B12] 2,500 mcg PO DAILY 11/27/16 [Last Taken Unknown] HYDROcodone/ACETAMINOPHEN [Slater 5-325] 1 each PO Q4H PRN #15 tablet 01/11/17 [ Last Taken Unknown] Ciprofloxacin HCl 500 mg PO BID #20 tablet 01/18/17 [Last Taken Unknown] Meclizine HCl [Antivert] 25 mg PO QID PRN #20 tablet 01/18/17 [Last Taken Unknown] Ondansetron HCl [Zofran] 1 - 2 mg PO Q8H PRN #30 tab 01/18/17 [Last Taken Unknown] metroNIDAZOLE [Flagyl] 500 mg PO Q8H #30 tablet 01/18/17 [Last Taken Unknown] oxyCODONE HCL [Oxycodone] 2.5 - 5 mg PO Q6H PRN #20 tab 01/25/17 [Last Taken Unknown] - History of Present Illness Narrative: Patient had a colonoscopy in november for anemia and thinks that she has had abdominal pain since. She was seen in the ER 01/18, had a CT done,was diagnosed with possible diverticulitis and started on cipro and flagyl. She has been taken the medication, no nausea or vomiting. She still continues to have constant pain, has small BM with thin caliber, sometimes passes liquid stool. She last took norco two nights ago as she is afraid to take more 'because of my kidneys', hardly slept last night due to pain Timing: constant Quality: severe Modifying Factors - (Worsens): Present: analgesics Associated Symptoms: Absent: diaphoresis, diarrhea-gross blood, fever/chills, heartburn, nausea, vomiting Prior Treatment: Present: recently seen, currently on antibiotics Review of Systems - Review of Systems Constitutional: Present: recent illness. Absent: fever, chills ENT: Absent: nose congestion, sore throat Respiratory: Absent: shortness of breath Cardiology: Absent: chest pain Gastrointestinal/Abdominal: Present: See HPI, constipation, abdominal pain. Absent: nausea, vomiting Genitourinary: Present: no symptoms reported. Absent: frequency Musculoskeletal: Present: back pain - chronic Neurological: Absent: headache, weakness, numbness - Patient's Past Medical History Patient History - Medical: Anemia, Arthritis, Diabetes Type 2 Insulin Dependent , Fibromyalgia, GERD, Hypothyroidism, Renal Failure, Other Patient History - Cardiac/Respiratory: CHF, Hypertension, Hyperlipidemia Patient History - Cancer: No Hx of Cancer Patient History - Surgical Procedures: Colonoscopy, D & C, T & A Patient History - Other: None - Family History Mother Family History - Medical: , Diabetes Type 2 Family History - Cardiac/Respiratory: Hypertension, Other Family History - Cancer: No pertinent family hx Father Family History - Medical: , Diabetes Type 2 Family History - Cardiac/Respiratory: Hypertension, Other Family History - Cancer: Other - Social History Living Situations: home Abuse History: No History of abuse Psych History: No pertinent hx Smoking Status: Never smoker Alcohol Use: rarely Drug Use: none - Immunizations Immunizations Up to Date: Yes Hx Pneumococcal Vaccination: Yes History of Influenza Vaccine: Yes Physical Exam - Physical Exam General Appearance: Present: wd/wn, alert, no apparent distress, obese Respiratory: Present: no respiratory distress, normal breath sounds, no accessory muscle use, lungs clear Cardiovascular/Chest: Present: regular rate, rhythm, no murmur, normal peripheral pulses Gastrointestinal/Abdominal: Present: normal bowel sounds, nondistended, soft, tenderness - LLQ. Absent: guarding, rebound, McBurney sign, Obturator sign Back Exam: Present: normal inspection, no CVA tenderness, no vertebral tenderness Neurological Exam: Present: alert, oriented, normal mood/affect Skin Exam: Present: normal color, warm/dry ED Progress - Results and Orders Patient's Lab Results:: I have reviewed the patient's lab results. - Vital Signs Patient's Vital Signs:: I have reviewed the patient's vital signs. Vital Signs: Vital Signs 01/25/17 14:23 Temperature 36.2 C L Pulse Rate 77 Respiratory 15 Rate Blood Pressure 152/78 O2 Sat by Pulse 97 Oximetry - X-Ray X-Ray #1 X-Ray: abdomen - non specific bowel gas pattern Interpretation: Reviewed by me - Progress/Reassessment Chief Complaint: Abdominal Pain Progress Note-Subjective: 01/25/17 17:10 discussed results with patient and family, patient appears comfortable will treat for pain ( as no pain meds today, one dose of tylenol yesterday), Departure - Departure Clinical Impression: Diverticulitis Qualifiers: Diverticulitis site: large intestine Diverticulitis bleeding: without bleeding Diverticulitis complication: without perforation or abscess Qualified Code(s): K57.32 - Diverticulitis of large intestine without perforation or abscess without bleeding Disposition: Home self-care Condition: Fair Instructions: Diverticulitis, [id number] Additional Instructions: take the pain medication as needed do not take tylenol nor ibuprofen call you doctor after the weekend for follow up return to the Er for worsening pain, vomiting, fever Referrals: Kelechi Garcia MD [Primary Care Provider] - Prescriptions: oxyCODONE HCL [Oxycodone] 2.5 - 5 mg PO Q6H PRN #20 tab PRN Reason: Severe Pain
[2017-01-25] MEDS ORDERED: oxyCODONE HCL 5 MG TABLET PO ONE (17:09)
[2017-01-25] MEDS ORDERED: oxyCODONE HCL 5 MG TABLET ONE (17:11)
[2017-01-25 17:39] VITALS: BP 147/85
== END 2017-01-25 17:18 | disposition home or self-care (01) ==
LOC: ER 13:50
DX: K57.32 Diverticulitis of large intestine without perforation or abscess without bleeding (principal); D64.9 Anemia, unspecified; M19.90 Unspecified osteoarthritis, unspecified site; E11.9 Type 2 diabetes mellitus without complications; Z79.4 Long term (current) use of insulin; M79.7 Fibromyalgia; K21.9 Gastro-esophageal reflux disease without esophagitis; E03.9 Hypothyroidism, unspecified; I50.9 Heart failure, unspecified; I10 Essential (primary) hypertension; E78.5 Hyperlipidemia, unspecified

== ENCOUNTER 2017-02-11 20:23 | Inpatient (IN) | payer MEDICARE, OTHER ==
--- OUTSIDE RECORDS SUMMARY | 2017-02-11 20:47 | XMS REPORT | Clinical Summary ---
:1935 Author Organization [employer] Address Unavailable [place] [address] Care Team Providers Name Role Phone Unavailable Primary Care Provider Unavailable Source Comments This disclosure is being made pursuant to the [employer] program and maynot contain all information available regarding this patient.[facility] Allergies No Known Allergies Current Medications Be aware that medications may not be up to date as of this document. Alwaysverify current medications with the patient. Prescription Sig. Disp. Refills Start Date End Date Status HYDROcodone-acetaminoph Take 1-2 tablets 60 tablet 0 10/27/2014 Active en (NORCO) 5-325 MG per by mouth every 4 tabletIndications:Francoise (four) hours as tren's contracture needed for Pain. aspirin 81 MG EC [...] of joint, not elsewhere classified, hand 11/20/2014 Dupuytren'laith contracture 10/27/2014 Family History Medical History Relation Name Comments Diabetes Father Hypertension Father Diabetes Maternal Grandfather Diabetes Maternal Grandmother Diabetes Mother Hypertension Mother Thyroid disease Mother Cancer Paternal Aunt Relation Name Status Comments Father Maternal Grandfather Maternal Grandmother Mother Paternal Aunt Social History Tobacco Use Types Packs/Day Years Used Date Former Smoker Alcohol Use Drinks/Week oz/Week Comments No Sex Assigned at Date Recorded Not on file Last Filed Vital Signs Vital Sign Reading Time Taken Blood Pressure 150/61 12/06/2014 2:57 PM CDT Pulse 76 10/27/2014 11:28 AM CDT Temperature - - Respiratory Rate 16 10/27/2014 11:28 AM CDT Oxygen Saturation - - Inhaled Oxygen Concentration - - Weight 83 kg (183 lb) 12/06/2014 2:57 PM CDT Height 157 cm (5' 1.8") 12/06/2014 2:57 PM CDT Body Mass Index 33.69 12/06/2014 2:57 PM CDT Plan of Treatment Health Maintenance Due Date Last Done Comments LAB-LIPIDS 1935 LAB-HgA1C 12/19/1939 Eye (Ophthalmology) Exam 1944 Foot Exam 1944 LAB-URINE MICROALBUMIN 1944 Tetanus/Pertussis (1 - Tdap) 1953 Well Adult Visit 1984 Zoster Vaccine 60+ 1994 Bone Density 12/19/1999 Pneumococcal Low/Medium Risk 65+ (1 of 2 - PCV13) 12/19/1999 INFLUENZA IMMUNIZATION (#1) 2016 Results Not on filefrom Last 3 Months Insurance Payer Benefit Plan / Group Subscriber ID Type Phone Address MEDICARE MEDICARE A AND B [id number] [address] [place] [address] [employer]CIAL [employer]UR[employer] [id number] Home: [address] [phone] [place] [address] [phone]
--- NOTE | 2017-02-11 21:38 | ERNOTE ---
Medical Problem HPI - General Chief Complaint: Nausea/Vomiting Time Seen by Provider: 02/11/17 21:24 Source: patient, family Exam Limitations: clinical condition - Immun/Allergies/Home Medications Immunizations: IMMUNIZATION HX Immunizations Up to Date Yes History of Influenza Vaccine Yes Hx Pneumococcal Vaccination Yes Allergies/Adverse Reactions: Allergies Iodinated Contrast Media - Oral and Allergy (Unknown, Verified 01/18/17 12:52) Other affected blood sugars Sulfa (Sulfonamide Antibiotics) Adverse Reaction (Intermediate, Verified 12:52) Severe nausea Home Medications: HOME MEDICATIONS Levothyroxine Sodium [Synthroid] 250 mcg PO DAILY@0700 03/28/16 [Last Taken Unknown] Aspirin [Aspirin EC] 325 mg PO DAILY #30 tablet. 10/30/16 [Last Taken Unknown] Insulin Glargine,Hum.rec.anlog [Lantus] 30 units SC HS #1 vial 10/30/16 [Last Taken Unknown] Lisinopril [Zestril] 30 mg PO DAILY@0700 #.1 tablet 10/30/16 [Last Taken Unknown ] Atorvastatin Calcium [Lipitor] 10 mg PO HS 11/12/16 [Last Taken Unknown] Cholecalciferol (Vitamin D3) [Vitamin D3] 2,000 unit PO DAILY 11/12/16 [Last Taken Unknown] Magnesium 400 mg PO DAILY 11/12/16 [Last Taken Unknown] Ranitidine HCl [Zantac] 150 mg PO HS 11/12/16 [Last Taken Unknown] Meclizine HCl [Antivert] 25 mg PO QID PRN #20 tablet 01/18/17 [Last Taken Unknown] Diltiazem HCl [Cardizem Cd] 120 mg PO DAILY 02/11/17 [Last Taken Unknown] Fexofenadine HCl [Claudia Allergy] 180 mg PO DAILY 02/11/17 [Last Taken Unknown] metFORMIN HCL [Glucophage Xr] 1,000 mg PO DAILY 02/11/17 [Last Taken Unknown] oxyCODONE HCL [Oxycodone] 5 mg PO Q6H PRN 02/12/17 [Last Taken Unknown] - History of Present History Narrative: Daughter states that her mother has not been acting right this evening. Her other daughter was at her house and states she was confused and refused to come to the hospital. The daughter that is here now left work and convinced her to come to the hospital. She had diarrhea and vomiting x 1 after the family was already concerned with her behavior tonight Timing: getting worse Severity: moderate Review of Systems - Review of Systems Constitutional: Present: recent illness - diverticulitis, chills EYE: Present: no symptoms reported ENT: Present: no symptoms reported Respiratory: Absent: shortness of breath Cardiology: Absent: chest pain Gastrointestinal/Abdominal: Present: See HPI, nausea, vomiting, diarrhea Genitourinary: Present: frequency Musculoskeletal: Absent: back pain, muscle pain Skin: Absent: rash, lesions Neurological: Present: other - mild confusion. Absent: dizziness/light- headedness, weakness Endocrine: Present: no symptoms reported Hematologic/Lymphatic: Present: no symptoms reported Psych: Present: no symptoms reported - Patient's Past Medical History Patient History - Medical: Anemia, Arthritis, Diabetes Type 2 Insulin Dependent , Fibromyalgia, GERD, Hypothyroidism, Renal Failure, Other Patient History - Cardiac/Respiratory: Arrhythmias, CHF, Hypertension, Hyperlipidemia Patient History - Cancer: No Hx of Cancer Patient History - Surgical Procedures: Colonoscopy, D & C, T & A Patient History - Other: None - Family History Mother Family History - Medical: , Diabetes Type 2 Family History - Cardiac/Respiratory: Hypertension, Other Family History - Cancer: No pertinent family hx Father Family History - Medical: , Diabetes Type 2 Family History - Cardiac/Respiratory: Hypertension, Other Family History - Cancer: Other - Social History Living Situations: home Abuse History: No History of abuse Psych History: No pertinent hx Smoking Status: Former smoker Have you smoked in the past 12 months: No Do you dip or chew tobacco: No Alcohol Use: rarely Drug Use: none - Immunizations Immunizations Up to Date: Yes Hx Pneumococcal Vaccination: Yes History of Influenza Vaccine: Yes Physical Exam - Physical Exam General Appearance: Present: wd/wn, alert, no apparent distress Head Exam: Present: normal inspection, no evidence of injury Eye Exam: Normal inspection: bilateral Ears, Nose, Throat: Present: normal ENT inspection Respiratory: Present: no respiratory distress, normal breath sounds, lungs clear Cardiovascular/Chest: Present: regular rate, rhythm, no murmur Gastrointestinal/Abdominal: Present: tenderness - right side, abnormal bowel sounds - hypoactive Back Exam: Present: no CVA tenderness Extremity Exam: Present: normal inspection, normal range of motion Neurological Exam: Present: alert, oriented, normal mood/affect Skin Exam: Present: normal color, warm/dry ED Progress - Results and Orders Patient's Lab Results:: I have reviewed the patient's lab results. Results and Orders: Laboratory Tests 02/11/17 02/11/17 02/11/17 20:54 21:00 21:00 WBC Hgb Hct Plt Count Neutrophils % (Manual) Sodium Potassium Chloride Carbon Dioxide Anion Gap BUN Creatinine Est GFR (Non-Af Amer) BUN/Creatinine Ratio Random Glucose Lactic Acid, Venous Calcium Calcium Adj for Albumin Total Bilirubin AST ALT Alkaline Phosphatase Total Protein Albumin Amylase Lipase Urine Color Dark yellow Urine Appearance Cloudy Urine pH 7.0 Ur Specific [place] 1.020 Urine Protein 100 H Urine Glucose (UA) 100 H Urine Ketones 5 Urine Blood Negative Urine Nitrate Negative Urine Bilirubin 1 H Urine Ictotest Negative Prot Sulfosalicylic Acd 2+ H Urine Urobilinogen Normal Ur Leukocyte Esterase Negative Urine RBC Trace Urine WBC 0-5 Ur Epithelial Cells None seen Ur Renal Epithelial Cell Few - 1+ H Amorphous Sediment Few - 1+ Urine Bacteria 2+ H Hyaline Casts 0-5 H Urine Mucus Few - 1+ H Urine Culture Comments Culture to follow Stool Occult Blood Positive H Stl C.difficile Tox A&B Negative 02/11/17 02/11/17 02/11/17 21:45 21:52 21:52 WBC 12.3 H Hgb 13.5 Hct 38.4 Plt Count 254 Neutrophils % (Manual) 77 H Sodium 132 Potassium 3.6 Chloride 95 L Carbon Dioxide 24.4 Anion Gap 16.2 H BUN 10 Creatinine 1.32 Est GFR (Non-Af Amer) 41 L BUN/Creatinine Ratio 7.6 L Random Glucose 265 H Lactic Acid, Venous 4.8 H* Calcium 9.3 Calcium Adj for Albumin 9.0 Total Bilirubin 0.7 AST 71 H ALT 73 H Alkaline Phosphatase 58 Total Protein 7.5 Albumin 4.0 Amylase 1474 H Lipase 211 Urine Color Urine Appearance Urine pH Ur Specific [place] Urine Protein Urine Glucose (UA) Urine Ketones Urine Blood Urine Nitrate Urine Bilirubin Urine Ictotest Prot Sulfosalicylic Acd Urine Urobilinogen Ur Leukocyte Esterase Urine RBC Urine WBC Ur Epithelial Cells Ur Renal Epithelial Cell Amorphous Sediment Urine Bacteria Hyaline Casts Urine Mucus Urine Culture Comments Stool Occult Blood Stl C.difficile Tox A&B 02/12/17 00:55 WBC Hgb Hct Plt Count Neutrophils % (Manual) Sodium Potassium Chloride Carbon Dioxide Anion Gap BUN Creatinine Est GFR (Non-Af Amer) BUN/Creatinine Ratio Random Glucose Lactic Acid, Venous 3.5 H* Calcium Calcium Adj for Albumin Total Bilirubin AST ALT Alkaline Phosphatase Total Protein Albumin Amylase Lipase Urine Color Urine Appearance Urine pH Ur Specific [place] Urine Protein Urine Glucose (UA) Urine Ketones Urine Blood Urine Nitrate Urine Bilirubin Urine Ictotest Prot Sulfosalicylic Acd Urine Urobilinogen Ur Leukocyte Esterase Urine RBC Urine WBC Ur Epithelial Cells Ur Renal Epithelial Cell Amorphous Sediment Urine Bacteria Hyaline Casts Urine Mucus Urine Culture Comments Stool Occult Blood Stl C.difficile Tox A&B - Vital Signs Patient's Vital Signs:: I have reviewed the patient's vital signs. Vital Signs: Vital Signs 02/11/17 02/11/17 20:24 20:50 Temperature 36.5 C Pulse Rate 90 104 H Respiratory 16 22 H Rate Blood Pressure 115/69 112/86 O2 Sat by Pulse 93 97 Oximetry - X-Ray X-Ray #1 X-Ray: abdomen Interpretation: Reviewed by me X-ray Comments: Findings: There are degenerative changes in a scoliotic lumbar spine. There are no air-filled dilated loops of bowel suggest obstruction. No free air identified. There is a coiled metallic foreign body in the pelvis unchanged. There are vascular calcifications. IMPRESSION: NO ACUTE ABDOMINAL PATHOLOGY IDENTIFIED. Electronically signed by Kevin Warren M.D.. - CT/Ultrasound CT/Ultrasound Narrative: US abdomen: There is no intra-or extrahepatic biliary dilatation identified with the common bile duct measuring 3.8 mm. Gallbladder shows shadowing echogenic foci compatible with gallstones. Gallbladder wall is of normal thickness and measures 2.3 mm. There is no sonographic Quiroz's sign elicited. There are no pericholecystic fluid collections identified. IMPRESSION: CHOLELITHIASIS. Electronically signed by Kevin Warren M.D.. CT abd/ pelvis" IMPRESSION: CHOLELITHIASIS. OTHER CHRONIC FINDINGS DISCUSSED. AGAIN, WITHIN THE LIMITATIONS OF A NONCONTRAST STUDY, NO SIGNIFICANT INTERVAL CHANGE FROM PREVIOUS STUDY. Electronically signed by Kevin Warren M.D.. - Progress/Reassessment Chief Complaint: Nausea/Vomiting Departure - Departure Clinical Impression: Pancreatitis Qualifiers: Chronicity: acute Pancreatitis type: unspecified pancreatitis type Acute pancreatitis complication: unspecified Qualified Code(s): K85.90 - Acute pancreatitis without necrosis or infection, unspecified Disposition: [facility] Condition: Fair
[2017-02-11 21:52] LABS: Hematocrit 38.4 % (37.0-47.0); Hemoglobin 13.5 gm/dL (12.5-16.0); Mean Cell Volume 93.7 fl (78-100); Mean Corpuscular Hemoglobin 32.9 pg (27-31); Mean Corpuscular Hgb Conc 35.2 g/dl (32-36); Mean Platelet Volume 9.6 fl (6.0-9.5); Platelet Count 254 K/mm3 (150-450); White Blood Count 12.3 K/mm3 (4.0-10.5)
[2017-02-11 21:55] LABS: Urine Appearance Cloudy; Urine Bilirubin 1 mg/dl (NEGATIVE); Urine Blood Negative /ul (NEGATIVE); Urine Color Dark Yellow; Urine Ketone 5 mg/dL (NEGATIVE); Urine Nitrite Negative (NEGATIVE); Urine Protein 100 mg/dL (NEGATIVE); Urine RBC TRACE /hpf (0-5); Urine Urobilinogen Normal (NORMAL); Urine WBC 0-5 /hpf (0-5)
[2017-02-11 21:56] LABS: Urine Amorphous Sediment Few - 1+ (NONE-FEW); Urine Bacteria 2+; Urine Hyaline Cast 0-5 /LPF; Urine Mucus Few - 1+; Urine Renal Epithelial Cell Few - 1+ /hpf
[2017-02-11 21:58] LABS: Total Cells Counted 100
[2017-02-11 22:14] LABS: Anion Gap 16.2 mmol/L (6.8-13.8); BUN/Creatinine Ratio 7.6 (9.0-21.6); Bilirubin, Total 0.7 mg/dL (0.0-1.1); Calcium * 9.3 mg/dL (7.9-10.9); Carbon Dioxide 24.4 mmol/L (24-32.6); Potassium 3.6 mmol/L (3.4-4.6); Total Protein 7.5 gm/dL (6.2-8.2)
[2017-02-11 22:39] LABS: Band 6 % (0-2.0); Basophil 1 % (0-1); Lymphocyte 8 % (20-51); Monocyte 8 % (0-9); Neutrophil 77 % (42-75); Neutrophil # 9.5 K/mm3 (1.3-6.0)
[2017-02-11 22:41] LABS: Platelet Estimate Normal (NORMAL); RBC Morphology Normal (NORMAL)
[2017-02-11] MEDS: NORMAL SALINE 1,000 ML IV PRN (23:12)
[2017-02-12] MEDS: NORMAL SALINE 1,000 ML IV PRN ×4 (00:26→09:17)
--- OUTSIDE RECORDS SUMMARY | 2017-02-12 01:20 | XMS REPORT | Clinical Summary ---
:1935 Author Organization [employer] Address Unavailable [place] [address] Care Team Providers Name Role Phone Unavailable Primary Care Provider Unavailable Source Comments This disclosure is being made pursuant to the [employer] program and maynot contain all information available regarding this patient.[employer] Allergies No Known Allergies Current Medications Be [...] Phone Address MEDICARE MEDICARE A AND B [id number] [address] [place] [address] [employer]CIAL [employer] INS[employer] [id number] Home: [address] [phone] [place] [address] [phone]
[2017-02-12] MEDS ORDERED: ONDANSETRON HCL/PF 2 MG/ML VIAL IV PRN (03:24)
[2017-02-12] MEDS ORDERED: ENOXAPARIN SODIUM 40 MG/0.4 ML SYRG SC SCH ×2 (03:30→09:00)
[2017-02-12] MEDS: PANTOPRAZOLE SODIUM 40 MG in NORMAL SALINE 100 ML IV SCH (04:12)
--- NOTE | 2017-02-12 04:54 | HP ---
Chief Complaint - Chief Complaint Date of Service: 02/12/17 Time of Service: 03:10 Chief Complaint: nausea, vomiting, abdominal pain History of Present Illness: Tri is an 81 year old female patient of Dr Garcia with a PMH of HTN, DM type 2, hypothyroidism, b12 deficiency, HLD, GERD, chemical gastritis, afib ( not on anticoagulation), iron deficiency anemia, hypomagnesemia, chronic diastolic heart failure and pulmonary HTN who presented to the ER today with c/ o n/v/d and abdominal pain x10 hours. ER evaluation revealed elevated wbc at 13.5 with 77% neutrophils and 6 bands, CMP remarkable for serum glucose 265, creatinine 1.32, ast 71 and alt 73. AST and ALT improved from the mid-100s on . Amylase 1474 and lipase 211. UA positive for protein, glucose, 1+ bilirubin, renal epithelial cells, 2+ bacteria, 0-5 hyaline casts, urine mucus and urine culture is currently pending. cdiff negative. lactic acid 4.8 with repeat lactic acid 3.5 after sepsis bolus. Patient c/o n/v/d. denies hematemesis. states vomiting small amount of green liquid with food intermixed. occult stool was positive in ER. However, patient states she has only noticed blood streaks on outside of stool at times and the blood is never mixed in with the stool. patient denies black tarry stools. has history afib, first diagnosed during hospitalization 10/2016. rate controlled with cardizem po. not on anti-coagulation - reports show that patient wanted work up for anemia diagnosed at that hospital visit first prior to starting anticoagulation. Had TSH checked outpatient and came back at 78.977 on 01/31/17 - patient's synthroid was increased to 250 mcg daily. patient had a colonscopy done 11/27/16 that showed severe sigmoid diverticulosis with polyp at 50 cm that was removed. Patient also had EGD same day that showed diffuse chemical gastritis, hiatal hernia. last echo 01/29/17 showed ef 65% with mod LVH, LA mildly dilated, LV hyperdynamic, mild MR, trace TR, pulm HTN with RSVP at 32 and evidence of diastolic dysfuction. CT abdomen/pelvis w/o showed liver, spleen, pancreas and adrenal glands unremarkable. gall bladder distended with multiple stones in the lumen. no pericholecystic fluid or wall thickening seen. bowel is nonobstructed. no evidence of acute diverticulitis. US of abdomen showed no intra or extrahepatic biliary dilatation identified with the common bile duct. gall bladder wall of normal thickness. no sonographic lopez's sign elicited. no pericholecystic fluid collections identified. Patient to be admitted for elevated amylase, abdominal pain, possible pancreatitis with lactic acidosis. - Patient's Past Medical History Patient History - Medical: Anemia, Arthritis, Diabetes Type 2 Insulin Dependent - 1968, Fibromyalgia, GERD - 2007, Hypothyroidism - , Renal Failure, Other - vitamin b12 deficiency; iron deficiency anemia; hiatal hernia Patient History - Cardiac/Respiratory: Atrial Fibrillation, Arrhythmias, CHF - diastolic heart failure, Hypertension - 1969, Hyperlipidemia, Other - mild MR, pulmonary HTN; Patient History - Cancer: No Hx of Cancer Patient History - Surgical Procedures: Colonoscopy, D & C, T & A Patient History - Other: None LMP (females 10-50): Menopausal - Family History Mother Family History - Medical: , Diabetes Type 2 Family History - Cardiac/Respiratory: Hypertension, Other Family History - Cancer: No pertinent family hx Father Family History - Medical: , Diabetes Type 2 Family History - Cardiac/Respiratory: Hypertension, Other Family History - Cancer: Other - Social History Living Situations: home Abuse History: No History of abuse Psych History: No pertinent hx Smoking Status: Former smoker Have you smoked in the past 12 months: No Do you dip or chew tobacco: No Smoking Stop Date: 07/22/74 Alcohol Use: rarely Drug Use: none - Immunizations Immunizations Up to Date: Yes Hx Pneumococcal Vaccination: Yes History of Influenza Vaccine: Yes Review Of Systems (GEN) - Review of Systems Generalized/Overall Review: Present: Chills. Absent: Fever EENTM: Present: No Symptoms Reported Respiratory: Present: No Symptoms Reported Cardiac: Present: No Symptoms Reported Abdominal: Present: Nausea, Vomiting, Abdominal Pain, Diarrhea. Absent: Hematemesis, Constipation, Melena, Bright blood from rectum Genitourinary: Present: Burning, Frequency Musculoskeletal: Present: No Symptoms Reported Neurological: Present: No Symptoms Reported Skin: Present: No Symptoms Reported Endocrine: Present: No Symptoms Reported Misc: All systems neg except as marked Immunizations: IMMUNIZATION HX Immunizations Up to Date Yes History of Influenza Vaccine Yes Hx Pneumococcal Vaccination Yes Allergies/Adverse Reactions: Allergies Allergy/AdvReac Type Severity Reaction Status Date / Time Iodinated Contrast Media - Allergy Unknown Other Verified 01/18/17 12:52 Oral and Sulfa (Sulfonamide AdvReac Intermediate Severe Verified 01/18/17 12:52 Antibiotics) nausea Home Medications: HOME MEDICATIONS Levothyroxine Sodium [Synthroid] 250 mcg PO DAILY@0700 03/28/16 [Last Taken Unknown] Aspirin [Aspirin EC] 325 mg PO DAILY #30 tablet. 10/30/16 [Last Taken Unknown] Insulin Glargine,Hum.rec.anlog [Lantus] 30 units SC HS #1 vial 10/30/16 [Last Taken Unknown] Lisinopril [Zestril] 30 mg PO DAILY@0700 #.1 tablet 10/30/16 [Last Taken Unknown ] Atorvastatin Calcium [Lipitor] 10 mg PO HS 11/12/16 [Last Taken Unknown] Cholecalciferol (Vitamin D3) [Vitamin D3] 2,000 unit PO DAILY 11/12/16 [Last Taken Unknown] Magnesium 400 mg PO DAILY 11/12/16 [Last Taken Unknown] Ranitidine HCl [Zantac] 150 mg PO HS 11/12/16 [Last Taken Unknown] Meclizine HCl [Antivert] 25 mg PO QID PRN #20 tablet 01/18/17 [Last Taken Unknown] Diltiazem HCl [Cardizem Cd] 120 mg PO DAILY 02/11/17 [Last Taken Unknown] Fexofenadine HCl [Claudia Allergy] 180 mg PO DAILY 02/11/17 [Last Taken Unknown] metFORMIN HCL [Glucophage Xr] 1,000 mg PO DAILY 02/11/17 [Last Taken Unknown] oxyCODONE HCL [Oxycodone] 5 mg PO Q6H PRN 02/12/17 [Last Taken Unknown] Exam - Exam Vital Signs: Vital Signs - Last Taken Temp 36.7 C 02/12/17 01:27 Pulse 84 02/12/17 04:28 Resp 18 02/12/17 02:53 BP 152/76 02/12/17 02:53 Pulse Ox 96 02/12/17 02:53 Constitutional: Present: Alert, Oriented x3, Cooperative, No distress ENT Exam: Present: hearing grossly normal Eye Exam: bilateral eye: normal inspection Neck: Present: full range of motion, supple Breasts: Present: Exam deferred Respiratory: Present: lungs clear, normal breath sounds, no respiratory distress , no accessory muscle use Cardiovascular/Chest: Present: normal peripheral pulses, no chest tenderness, no edema, irregularly irregular. Absent: tachycardia Peripheral Pulses: carotid (R): 2+, carotid (L): 2+, dorsalis-pedis (R): 2+, dorsalis-pedis (L): 2+, radial (R): 2+, radial (L): 2+ Abdomen: Present: soft, nondistended, no rebound tenderness, tender - RUQ. Absent: guarding, rigidity /Rectal: Present: Exam deferred Extremity: Present: non-tender, normal inspection Skin Exam: Present: normal color, warm/dry, no cyanosis Diagnostic Studies: Laboratory Results WBC 12.3 K/mm3 (4.0-10.5) H 02/11/17 21:52 RBC 4.10 M/mm3 (4.2-5.4) L 02/11/17 21:52 Hgb 13.5 gm/dL (12.5-16.0) 02/11/17 21:52 Hct 38.4 % (37.0-47.0) 02/11/17 21:52 MCV 93.7 fl (78-100) 02/11/17 21:52 MCH 32.9 pg (27-31) H 02/11/17 21:52 MCHC 35.2 g/dl (32-36) 02/11/17 21:52 RDW 18.0 % (11.5-14.0) H 02/11/17 21:52 Plt Count 254 K/mm3 (150-450) 02/11/17 21:52 MPV 9.6 fl (6.0-9.5) H 02/11/17 21:52 Neutrophils % (Manual) 77 % (42-75) H 02/11/17 21:52 Band Neuts % (Manual) 6 % (0-2.0) H 02/11/17 21:52 Lymphocytes % (Manual) 8 % (20-51) L 02/11/17 21:52 Monocytes % (Manual) 8 % (0-9) 02/11/17 21:52 Basophils % (Manual) 1 % (0-1) 02/11/17 21:52 Neutrophils # (Manual) 9.5 K/mm3 (1.3-6.0) H 02/11/17 21:52 Lymphocytes # (Manual) 1.0 k/mm3 (1.5-3.5) L 02/11/17 21:52 Monocytes # (Manual) 1.0 k/mm3 (0.0-1.0) 02/11/17 21:52 Basophils # (Manual) 0.1 k/mm3 (0.0-0.1) 02/11/17 21:52 Toxic Vacuolation 1+ 02/11/17 21:52 Platelet Estimate Normal (NORMAL) 02/11/17 21:52 RBC Morphology Normal (NORMAL) 02/11/17 21:52 [place] Cells 2+ 02/11/17 21:52 Elliptocytes 1+ 02/11/17 21:52 Sodium 132 mmol/L (132-142) 02/11/17 21:52 Plasma Sodium 135 mmol/L (130-142) 02/11/17 21:52 Potassium 3.6 mmol/L (3.4-4.6) 02/11/17 21:52 Chloride 95 mmol/L (97-106) L 02/11/17 21:52 Carbon Dioxide 24.4 mmol/L (24-32.6) 02/11/17 21:52 Anion Gap 16.2 mmol/L (6.8-13.8) H 02/11/17 21:52 BUN 10 mg/dL (3-23) 02/11/17 21:52 Creatinine 1.32 mg/dL (0.4-1.4) 02/11/17 21:52 Est GFR (Non-Af Amer) 41 mL/min (60-130) L 02/11/17 21:52 BUN/Creatinine Ratio 7.6 (9.0-21.6) L 02/11/17 21:52 Random Glucose 265 mg/dL (70-110) H 02/11/17 21:52 Lactic Acid, Venous 3.5 mmol/L (0.4-1.9) H* 02/12/17 00:55 Calcium 9.3 mg/dL (7.9-10.9) 02/11/17 21:52 Calcium Adj for Albumin 9.0 mg/dL (8.4-10.2) 02/11/17 21:52 Total Bilirubin 0.7 mg/dL (0.0-1.1) 02/11/17 21:52 AST 71 U/L (0-48) H 02/11/17 21:52 ALT 73 U/L (19-67) H 02/11/17 21:52 Alkaline Phosphatase 58 U/L (50-170) 02/11/17 21:52 Total Protein 7.5 gm/dL (6.2-8.2) 02/11/17 21:52 Albumin 4.0 gm/dl (3.4-5.0) 02/11/17 21:52 Amylase 1474 U/L (25-115) H 02/11/17 21:52 Lipase 211 U/L (73-393) 02/11/17 21:52 Urine Color Dark yellow 02/11/17 21:00 Urine Appearance Cloudy 02/11/17 21:00 Urine pH 7.0 pH (5.0-7.0) 02/11/17 21:00 Ur Specific [place] 1.020 SP.GR. (1.005-1.010) 02/11/17 21:00 Urine Protein 100 mg/dL (NEGATIVE) H 02/11/17 21:00 Urine Glucose (UA) 100 mg/dL (NEGATIVE) H 02/11/17 21:00 Urine Ketones 5 mg/dL (NEGATIVE) 02/11/17 21:00 Urine Blood Negative /ul (NEGATIVE) 02/11/17 21:00 Urine Nitrate Negative (NEGATIVE) 02/11/17 21:00 Urine Bilirubin 1 mg/dl (NEGATIVE) H 02/11/17 21:00 Urine Ictotest Negative (NEGATIVE) 02/11/17 21:00 Prot Sulfosalicylic Acd 2+ mg/dL (0) H 02/11/17 21:00 Urine Urobilinogen Normal EU/dl (NORMAL) 02/11/17 21:00 Ur Leukocyte Esterase Negative /ul (NEGATIVE) 02/11/17 21:00 Urine RBC Trace /hpf (0-5) 02/11/17 21:00 Urine WBC 0-5 /hpf (0-5) 02/11/17 21:00 Ur Epithelial Cells None seen /hpf (0-5) 02/11/17 21:00 Ur Renal Epithelial Cell Few - 1+ /hpf (NONE) H 02/11/17 21:00 Amorphous Sediment Few - 1+ (NONE-FEW) 02/11/17 21:00 Urine Bacteria 2+ (NONE) H 02/11/17 21:00 Hyaline Casts 0-5 /LPF (NONE) H 02/11/17 21:00 Urine Mucus Few - 1+ (NONE) H 02/11/17 21:00 Urine Culture Comments Culture to follow 02/11/17 21:00 Stool Occult Blood Positive H 02/11/17 20:54 Stl C.difficile Tox A&B Negative (Negative) 02/11/17 21:00 Assessment/Plan - Narrative Narrative: hyperamylasemia - elevated wbc at 12.3 with 77% neutrophils and 6% bands - spoke with Dr. Alvarez (GI service consult at [email or web address]) on 02/12/17 at 1613 - he said unlikely acute cholangitis as no fever, bilirubin not elevated and CT of abdomen / pelvis both show no dilation of intra and extra hepatic biliary ducts. He did not recommend an ERCP. Appreciate his telephone consult. - still could be gi related ( upper and/or lower) - CT shows cholelithiasis and diverticulosis but not diverticulitis - could be early diverticulitis - can be drug induced - was recently on ciprofloxacin / flagyl - both can elevate amylase - currently on zantac - can elevate amylase - hold zantac for now. - cont IV fluids - keep pt NPO with ice chips - unlikely to be true acute pancreatitis - however will monitor for now, cont same plan of care and recheck labs in am. diarrhea - c diff negative - check stool culture - no antibiotic - will monitor for now. elevated LFTs - likely secondary to statin use - hold lipitor for now. lactic acidosis - unlikely to be septic as of now as I cannot find a source of infection as this point - chest xray neg for infection. - blood cultures x2 and urine culture is pending - can be secondary to metformin - hold metformin for now. - responding to iv fluids. afib - recently diagnosed 10/2016. - not on anticoagulation - confirmed by ekg this am. - rate controlled with cardizem - ? start coumadin or eliquis - defer to dr garcia. HTN - hold lisinopril for now as creatinine is on the upper limit of normal. hypothyroidism - cont synthroid 250 mcg daily Diabetes - continue lantus 30 units q hs - accu-checks ac with sliding scale insulin as needed. code status: full code vte: lovenox GI proph: protonix 40 mg iv - Assessment/Plan (1) Hyperamylasemia Problem: Acute (2) Nausea and vomiting Problem: Acute Qualifiers: Vomiting type: unspecified Vomiting Intractability: unspecified Qualified Code(s): R11.2 - Nausea with vomiting, unspecified (3) Abdominal pain Problem: Acute Qualifiers: Abdominal location: right upper quadrant Qualified Code(s): R10.11 - Right upper quadrant pain (4) Lactic acidosis Problem: Acute (5) Afib Problem: Chronic Qualifiers: Atrial fibrillation type: chronic Qualified Code(s): I48.2 - Chronic atrial fibrillation (6) HTN (hypertension) Problem: Chronic Qualifiers: Hypertension type: essential hypertension Qualified Code(s): I10 - Essential (primary) hypertension (7) HLD (hyperlipidemia) Problem: Chronic Qualifiers: Hyperlipidemia type: unspecified Qualified Code(s): E78.5 - Hyperlipidemia , unspecified (8) Hypothyroidism Problem: Chronic Qualifiers: Hypothyroidism type: acquired Qualified Code(s): E03.9 - Hypothyroidism, unspecified (9) Fe deficiency anemia Problem: Chronic Qualifiers: Iron deficiency anemia type: unspecified iron deficiency Qualified Code(s) : D50.9 - Iron deficiency anemia, unspecified (10) T2DM (type 2 diabetes mellitus) Problem: Chronic Qualifiers: Diabetes mellitus complication status: with hyperglycemia Diabetes mellitus extermination supervisor insulin use: with extermination supervisor use Qualified Code(s): E11.65 - Type 2 diabetes mellitus with hyperglycemia; Z79.4 - predatory animal exterminator (current) use of insulin (11) Obesity Problem: Chronic Qualifiers: Obesity type: unspecified obesity type (12) Diarrhea Problem: Acute Qualifiers: Diarrhea type: unspecified type Qualified Code(s): R19.7 - Diarrhea, unspecified
[2017-02-12 06:25] LABS: INR 1.21 INR (0.90-1.10); Partial Thrombolplastin Time 28.5 Seconds (24-32); Prothrombin Time (Patient) 12.6 Seconds (9.4-11.4)
[2017-02-12] MEDS ORDERED: LEVOTHYROXINE SODIUM 25 MCG TABLET PO SCH ×2 (07:00→09:15)
[2017-02-12] MEDS ORDERED: LEVOTHYROXINE SODIUM PO SCH ×2 (07:00)
[2017-02-12] MEDS: INSULIN LISPRO 100 UNITS/ML VIAL SC SCH ×3 (07:50→16:05)
--- NOTE | 2017-02-12 09:00 | PN ---
Progess Note - Interim Narrative: 02/12/17 09:00 Just had BRBPR. Still with RUQ pain but bless than yesterday. Will do HIDA scan. will talk with Dr. Jones.
[2017-02-12] MEDS: DILTIAZEM HCL 120 MG CAP.SR.24H PO SCH (09:16)
[2017-02-12 09:27] LABS: Hematocrit 33.9 % (37.0-47.0); Hemoglobin 12.2 gm/dL (12.5-16.0)
[2017-02-12 16:48] LABS: Hematocrit 32.1 % (37.0-47.0); Hemoglobin 11.8 gm/dL (12.5-16.0)
[2017-02-12] MEDS: INSULIN GLARGINE,HUM.REC.ANLOG 100 UNITS/ML VIAL SC SCH (21:07)
[2017-02-12 21:33] LABS: Hematocrit 29.2 % (37.0-47.0); Hemoglobin 10.7 gm/dL (12.5-16.0)
[2017-02-12] MEDS: PIPERACILLIN SODIUM/TAZOBACTAM 3.375 GM in DEXTROSE 5 % IN WATER 100 ML IV SCH ×2 (21:38)
[2017-02-12] MEDS: SACCHAROMYCES BOULARDII 250 MG CAPSULE PO SCH (21:43)
[2017-02-13] MEDS: PANTOPRAZOLE SODIUM 40 MG in NORMAL SALINE 100 ML IV SCH (02:55)
[2017-02-13] MEDS: PIPERACILLIN SODIUM/TAZOBACTAM 3.375 GM in DEXTROSE 5 % IN WATER 100 ML IV SCH ×6 (03:59→20:46)
[2017-02-13 05:55] LABS: Hematocrit 28.8 % (37.0-47.0); Hemoglobin 10.2 gm/dL (12.5-16.0); Mean Cell Volume 93.2 fl (78-100); Mean Corpuscular Hgb Conc 35.4 g/dl (32-36); Mean Platelet Volume 10.3 fl (6.0-9.5); Neutrophil # 6.1 K/mm3 (1.3-6.0); Neutrophil % 74.2 % (42-75.0); Platelet Count 207 K/mm3 (150-450); Red Blood Count 3.09 M/mm3 (4.2-5.4); Red Cell Distribution Width 17.9 % (11.5-14.0); White Blood Count 8.2 K/mm3 (4.0-10.5)
[2017-02-13 06:13] LABS: Albumin * 3.2 gm/dl (3.4-5.0); Anion Gap 11.7 mmol/L (6.8-13.8); BUN/Creatinine Ratio 9.4 (9.0-21.6); Bilirubin, Total 0.8 mg/dL (0.0-1.1); Calcium * 7.7 mg/dL (7.9-10.9); Carbon Dioxide 28.2 mmol/L (24-32.6); Potassium 2.9 mmol/L (3.4-4.6); Total Protein 6.4 gm/dL (6.2-8.2)
[2017-02-13] MEDS: INSULIN LISPRO 100 UNITS/ML VIAL SC SCH ×3 (06:36→17:39)
[2017-02-13] MEDS: LEVOTHYROXINE SODIUM 125 MCG TABLET PO SCH (06:37)
[2017-02-13] MEDS: DILTIAZEM HCL 120 MG CAP.SR.24H PO SCH (08:14)
[2017-02-13] MEDS: SACCHAROMYCES BOULARDII 250 MG CAPSULE PO SCH ×2 (08:15→20:38)
--- NOTE | 2017-02-13 09:02 | PN ---
Subjective - Date and Time Seen Date: 02/13/17 Time: 08:55 Subjective Narrative: Patient was started on IV zosyn for possible acute diverticulitis. She is on clear liquids now. Objective - Review of Systems Generalized/Overall Review: Denies: Weakness, Chills, Fever EENTM: Reports: No Symptoms Reported Respiratory: Denies: Cough, Shortness of Breath Cardiac: Denies: Chest Pain, Palpitations Abdominal: Reports: Abdominal Pain. Denies: Nausea, Vomiting Genitourinary Symptoms: Denies: Urgency, Frequency Musculoskeletal Complaints: Reports: Joint Pain - Vitals Vitals: Last Vital Signs Temp 37.2 C 02/13/17 06:14 Pulse 85 02/13/17 08:14 Resp 18 02/13/17 06:14 BP 121/61 02/13/17 08:14 Pulse Ox 96 02/13/17 06:14 - Abnormal Lab Findings Abnormal Lab Findings: Abnormal Lab Results 02/12/17 02/12/17 02/12/17 Range/Units 09:14 16:41 21:20 RBC (4.2-5.4) M/mm3 Hgb 12.2 L 11.8 L 10.7 L (12.5-16.0) gm/dL Hct 33.9 L 32.1 L 29.2 L (37.0-47.0) % MCH (27-31) pg RDW (11.5-14.0) % MPV (6.0-9.5) fl Lymphocytes % (20-51) % Monocytes % (0.0-9) % Neutrophils # (1.3-6.0) K/mm3 Lymphocytes # (1.5-3.5) k/mm3 Potassium (3.4-4.6) mmol/L Est GFR (Non-Af Amer) (60-130) mL/min Calcium (7.9-10.9) mg/dL Calcium Adj for Albumin (8.4-10.2) mg/dL Alkaline Phosphatase (50-170) U/L Albumin (3.4-5.0) gm/dl Amylase (25-115) U/L 02/13/17 02/13/17 Range/Units 05:10 05:10 RBC 3.09 L (4.2-5.4) M/mm3 Hgb 10.2 L (12.5-16.0) gm/dL Hct 28.8 L (37.0-47.0) % MCH 33.0 H (27-31) pg RDW 17.9 H (11.5-14.0) % MPV 10.3 H (6.0-9.5) fl Lymphocytes % 13.6 L (20-51) % Monocytes % 10.9 H (0.0-9) % Neutrophils # 6.1 H (1.3-6.0) K/mm3 Lymphocytes # 1.1 L (1.5-3.5) k/mm3 Potassium 2.9 L (3.4-4.6) mmol/L Est GFR (Non-Af Amer) 53 L D (60-130) mL/min Calcium 7.7 L (7.9-10.9) mg/dL Calcium Adj for Albumin 8.0 L (8.4-10.2) mg/dL Alkaline Phosphatase 39 L (50-170) U/L Albumin 3.2 L (3.4-5.0) gm/dl Amylase 117 H (25-115) U/L - Exam Constitutional: Present: Alert, Oriented x3, Mild distress ENT Exam: Present: hearing grossly normal Neck: Present: supple Breasts: Present: Exam deferred Respiratory: Present: normal breath sounds, No rales, No wheezing Cardiovascular/Chest: Present: regular rate, rhythm, no JVD, no murmur Abdomen: Present: Normal bowel sounds, soft, tender Extremity: Present: no calf tenderness, pedal edema Assessment/Plan - Problems/Diagnosis (1) Diverticulitis Problem: Acute Qualifiers: Diverticulitis site: large intestine Diverticulitis bleeding: with bleeding Diverticulitis complication: without perforation or abscess Qualified Code(s): K57.33 - Diverticulitis of large intestine without perforation or abscess with bleeding Narrative: surgical consult done- feels it is acute diverticulitis clinically- Zosyn started. (2) Hyperamylasemia Problem: Acute Narrative: likely due to diverticulitis r/o drug induce. down to the 100's. (3) Lactic acidosis Problem: Acute Narrative: metformin on hold (4) HLD (hyperlipidemia) Problem: Chronic Qualifiers: Hyperlipidemia type: unspecified Qualified Code(s): E78.5 - Hyperlipidemia , unspecified (5) HTN (hypertension) Problem: Chronic Qualifiers: Hypertension type: essential hypertension Qualified Code(s): I10 - Essential (primary) hypertension (6) Hypothyroidism Problem: Chronic Qualifiers: Hypothyroidism type: acquired Qualified Code(s): E03.9 - Hypothyroidism, unspecified (7) Diabetes mellitus type 2 with complications, uncontrolled Problem: Chronic Qualifiers: Diabetes mellitus termite exterminator helper insulin use: with termite exterminator helper use Qualified Code( s): E11.8 - Type 2 diabetes mellitus with unspecified complications; E11.65 - Type 2 diabetes mellitus with hyperglycemia; Z79.4 - termite exterminator helper (current) use of insulin
[2017-02-13] MEDS: POTASSIUM CHLORIDE 20 MEQ TABLET.SA PO SCH ×3 (09:45→17:40)
[2017-02-13] MEDS: POTASSIUM CHLORIDE 40 MEQ in NORMAL SALINE 1,000 ML IV SCH ×2 (10:23→20:37)
--- NOTE | 2017-02-13 19:35 | CONS ---
[facility] - General Date of Service: 02/12/17 - approx 1800 Narrative: The patient is an 81-year-old female who was admitted through the emergency room with abdominal pain, leukocytosis and elevated lactic acid. She has been seen several times previously for similar complaints in the emergency room. Prior study includes a CAT scan which suggested gallstones and when the case was initially discussed with her treating physicians a hepatobiliary scan was recommended, has been performed, and showed gallbladder visualization ruling out acute cholecystitis. Source: patient, family, RN/MD, RN notes reviewed, old records - History of Present Illness Initial Comments: The patient herself is not a precise historian, however family was also present during the interview and did supply additional information. The patient had an EGD and colonoscopy performed for anemia on 12/07/2016. 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 It is notable that the patient had profound bradycardia when the scope was at the level of the transverse colon, the exam was terminated. The cecum and proximal transverse colon have never been evaluated, however appear grossly normal on CT scan. The patient states her bowels have not been the same since. She will have extreme cramping lower abdominal pain and rather urgent bowel movements. She has noted some blood in her bowels. She has also had nausea and vomiting. She has been seen in the emergency room on 01/10/2017, 01/18/2017, and 01/25/2017. There was some mild bowel wall thickening in the sigmoid on CT scan and she was treated empirically with by mouth antibiotics. Apparently there was some improvement, however that her symptoms came back. Currently she states she has no aisha pain at rest but reports tenderness when her abdomen is palpated. It does not hurt to cough or move. She is hungry. Severity: mild Modifying Factors - (Worsens): Reports: other - Apparently related to bowel movements Modifying Factors - (Improves): Reports: immobilization Associated Symptoms: other - She has not been febrile or had chills. She feels nauseated. Allergies/Adverse Reactions: Allergies Iodinated Contrast Media - Oral and Allergy (Unknown, Verified 02/13/17 12:30) Other affected blood sugars Sulfa (Sulfonamide Antibiotics) Adverse Reaction (Intermediate, Verified 12:30) Severe nausea Home Medications: Home Medications Medication Instructions Recorded Last Taken Levothyroxine Sodium [Synthroid] 250 mcg PO DAILY@0700 03/28/16 Unknown Atorvastatin Calcium [Lipitor] 10 mg PO HS 11/12/16 Unknown Cholecalciferol (Vitamin D3) 2,000 unit PO DAILY 11/12/16 Unknown [Vitamin D3] Magnesium 400 mg PO DAILY 11/12/16 Unknown Ranitidine HCl [Zantac] 150 mg PO HS 11/12/16 Unknown Diltiazem HCl [Cardizem Cd] 120 mg PO DAILY 02/11/17 Unknown Fexofenadine HCl [Claudia Allergy] 180 mg PO DAILY 02/11/17 Unknown metFORMIN HCL [Glucophage Xr] 1,000 mg PO DAILY 02/11/17 Unknown oxyCODONE HCL [Oxycodone] 5 mg PO Q6H PRN 02/12/17 Unknown - Patient's Past Medical History Patient History - Medical: Anemia, Arthritis, Diabetes Type 2 Insulin Dependent - 1968, Fibromyalgia, GERD - 2007, Hypothyroidism - , Renal Failure, Other - vitamin b12 deficiency; iron deficiency anemia; hiatal hernia Patient History - Cardiac/Respiratory: Atrial Fibrillation, Arrhythmias, CHF - diastolic heart failure, Hypertension - 1969, Hyperlipidemia, Other - mild MR, pulmonary HTN; Patient History - Cancer: No Hx of Cancer Patient History - Surgical Procedures: Colonoscopy, D & C, T & A Patient History - Other: None LMP (females 10-50): Menopausal - Family History Mother Family History - Medical: , Diabetes Type 2 Family History - Cardiac/Respiratory: Hypertension, Other Family History - Cancer: No pertinent family hx Father Family History - Medical: , Diabetes Type 2 Family History - Cardiac/Respiratory: Hypertension, Other Family History - Cancer: Other - Social History Living Situations: home Abuse History: No History of abuse Psych History: No pertinent hx Smoking Status: Former smoker Have you smoked in the past 12 months: No Do you dip or chew tobacco: No Smoking Stop Date: 07/22/74 Alcohol Use: rarely Drug Use: none - Immunizations Immunizations Up to Date: Yes Hx Pneumococcal Vaccination: Yes History of Influenza Vaccine: Yes Procedures COLONOSCOPY (04/03/06) ESOPHAGOGASTRODUODENOSCOPY [EGD] W/CLOSED BIOPSY (02/22/09) EXCISION OF ESOPHAGOGASTRIC JUNCTION, ENDO, DIAGN (11/27/16) EXCISION OF LARGE INTESTINE, ENDO, DIAGN (11/27/16) EXCISION OF STOMACH, ENDO, DIAGN (11/27/16) INSERT INDWELLING CATH (12/12/07) PHARYNGOSCOPY (02/22/09) Medications - Medications Current Medications: Current Medications Diltiazem HCl (Cardizem Cd) 120 mg PO DAILY [facility] Stop: 03/14/17 09:01 Last Admin: 02/13/17 08:14 Dose: 120 mg Pantoprazole Sodium 40 mg/ (Sodium Chloride) 100 mls @ 400 mls/hr IV Q24H [facility] Stop: 03/14/17 03:46 Last Admin: 02/13/17 02:55 Dose: 400 mls/hr Piperacillin Sod/Tazobactam (Sod 3.375 gm/ Dextrose/Water) 100 mls @ 25 mls/hr IV Q8H [facility] PRN Reason: Protocol Stop: 03/14/17 21:01 Last Admin: 02/13/17 15:02 Dose: 25 mls/hr Potassium Chloride 40 meq/ (Sodium Chloride) 1,020 mls @ 100 mls/hr IV .[id number] [facility] Stop: 03/15/17 09:16 Last Admin: 02/13/17 10:23 Dose: 100 mls/hr Insulin Glargine (Lantus) 30 units SC HS [facility] Stop: 03/14/17 21:01 Last Admin: 02/12/17 21:07 Dose: 30 units Insulin Human Lispro (Humalog) 0 units SC ACINS [facility] PRN Reason: Protocol Stop: 03/14/17 07:01 Last Admin: 02/13/17 17:39 Dose: Not Given Levothyroxine Sodium (Synthroid) 250 mcg PO DAILY@0700 [facility] Stop: 03/15/17 07:01 Last Admin: 02/13/17 06:37 Dose: 250 mcg Ondansetron HCl (Zofran) 4 mg IV Q4H PRN PRN Reason: Nausea Stop: 03/14/17 03:25 Last Admin: 02/12/17 04:06 Dose: 4 mg Potassium Chloride (K-Dur) 40 meq PO TIDWM [facility] Stop: 03/15/17 09:01 Last Admin: 02/13/17 17:40 Dose: 40 meq Saccharomyces Boulardii (Florastor) 250 mg PO BID [facility] Stop: 03/14/17 21:01 Last Admin: 02/13/17 08:15 Dose: 250 mg Review of Systems - Review of Systems Generalized/Overall Review: Present: Weakness. Absent: Chills, Fever EENTM: Present: No Symptoms Reported Respiratory: Present: No Symptoms Reported Cardiac: Present: No Symptoms Reported Abdominal: Present: Other - She describes crampy lower abdominal pain related to bowel movements and difficulty moving her bowels. She states she used to have regular bowel movements but now is more constipated. She has apparently had some blood with bowel movements, however this did not start until well after the colonoscopy. Genitourinary: Present: No Symptoms Reported Musculoskeletal: Present: Back Pain Neurological: Present: No Symptoms Reported, Other - There apparently were some comments during earlier ER visits of some altered mental status or clarity of thought Skin: Present: No Symptoms Reported Physical Examination - Exam Vital Signs: Vital Signs - Last Taken Temp 36.7 C 02/12/17 1610 Pulse 77 Resp 18 BP 129/48 Pulse Ox 96 O2 Oxygen Delivery Method Room Air Constitutional: Present: Alert, Oriented x3, Cooperative, Well nourished, No distress ENT Exam: Present: normal ENT inspection, hearing grossly normal Eye Exam: bilateral eye: normal inspection Neck: Present: full range of motion, normal inspection Respiratory: Present: no respiratory distress Cardiovascular/Chest: Present: regular rate, rhythm Abdomen: Present: other - Obese, soft with a few normal bowel sounds. No percussion tenderness anywhere. She reports her abdomen does not hurt if she coughs or moves. She has mild direct tenderness deep in the epigastrium. She reports some deep tenderness in the left lower quadrant, however no rebound tenderness is elicited. There is no tenderness over the area of the gallbladder. /Rectal: Present: Exam deferred Extremity: Present: normal range of motion, normal inspection Skin Exam: Present: normal color, warm/dry Neurologic: Present: other - No focal or lateralizing findings Appearance: Present: appropriate appearance, neat, other - She has some difficulty precisely describing her symptoms Eye contact: Present: cooperative, good eye contact, normal speech Thoughts: Present: normal thought pattern - Results and Findings: Lab/Microbiology results last 24 hrs: Abnormal/Pending Laboratory Last 24 HRS 02/13/17 02/13/17 02/13/17 13:30 10:34 05:10 RBC Hgb Hct MCH RDW MPV Lymphocytes % Monocytes % Neutrophils # Lymphocytes # Potassium 2.9 L Est GFR (Non-Af Amer) 53 L D Lactic Acid, Venous 3.5 H* 2.3 H* Calcium 7.7 L Calcium Adj for Albumin 8.0 L Alkaline Phosphatase 39 L Albumin 3.2 L Amylase 117 H 02/13/17 02/12/17 05:10 21:20 RBC 3.09 L Hgb 10.2 L 10.7 L Hct 28.8 L 29.2 L MCH 33.0 H RDW 17.9 H MPV 10.3 H Lymphocytes % 13.6 L Monocytes % 10.9 H Neutrophils # 6.1 H Lymphocytes # 1.1 L Potassium Est GFR (Non-Af Amer) Lactic Acid, Venous Calcium Calcium Adj for Albumin Alkaline Phosphatase Albumin Amylase Culture 02/12/17 12:43 Stool Culture - Preliminary Stool No Pathogens Isolated - Assessments/Findings (1) Abdominal pain Diagnosis(s): The nature of her abdominal complaints would be most compatible with a colonic etiology. The left lower quadrant tenderness could be related to diverticulitis which has not been completely treated or much less likely a colon injury from colonoscopy.. The elevation in her amylase is very minimal, the gallbladder appears to be functioning normally although she does have stones. The pancreas appears normal on CT. The reason for her elevated lactic acid given her relatively normal clinical appearance is unknown, and is not readily apparent . IMPRESSION: Possible diverticulitis incompletely treated. RECOMMEND: Would treat her empirically with Zosyn, which is a different antibiotic from those with which she has been treated with previously. She could be begun on a trial of clear liquids. Her care was discussed in real time directly with Genevieve Barrientos NP and will be discussed further with Dr. Garcia Problem: Acute Qualifiers: Abdominal location: right upper quadrant Qualified Code(s): R10.11 - Right upper quadrant pain
[2017-02-13] MEDS: INSULIN GLARGINE,HUM.REC.ANLOG 100 UNITS/ML VIAL SC SCH (20:41)
[2017-02-14] MEDS: PANTOPRAZOLE SODIUM 40 MG in NORMAL SALINE 100 ML IV SCH (03:05)
[2017-02-14] MEDS: PIPERACILLIN SODIUM/TAZOBACTAM 3.375 GM in DEXTROSE 5 % IN WATER 100 ML IV SCH ×6 (04:46→20:37)
[2017-02-14] MEDS: LEVOTHYROXINE SODIUM 125 MCG TABLET PO SCH (06:41)
--- NOTE | 2017-02-14 07:18 | PN ---
Subjective - Date and Time Seen Date: 02/14/17 Time: 07:15 Subjective Narrative: Pt examined this am. She is alert and in no distress. Denies having any abdominal pain or tenderness. Complains of having diarrhea. No other issues according to nursing. Objective - Vitals Vitals: Last Vital Signs Temp 36.8 C 02/13/17 18:45 Pulse 83 02/14/17 04:50 Resp 20 02/13/17 18:45 BP 165/55 02/13/17 18:50 Pulse Ox 99 02/13/17 18:45 - Abnormal Lab Findings Abnormal Lab Findings: Abnormal Lab Results 02/13/17 02/13/17 Range/Units 10:34 13:30 Lactic Acid, Venous 2.3 H* 3.5 H* (0.4-1.9) mmol/L - Exam Constitutional: Present: Alert, Oriented x3, Cooperative, No distress ENT Exam: Present: normal ENT inspection, hearing grossly normal Neck: Present: non-tender, full range of motion, supple Breasts: Present: Exam deferred Respiratory: Present: lungs clear, No wheezing Cardiovascular/Chest: Present: normal peripheral pulses, regular rate, rhythm, no chest tenderness, no murmur Abdomen: Present: Normal bowel sounds, soft, nontender /Rectal: Present: Exam deferred Extremity: Present: normal range of motion, non-tender, normal inspection, no pedal edema Skin Exam: Present: warm/dry, no cyanosis Neurologic: Present: no motor/sensory deficits, alert, oriented x 3 Appearance: Present: appropriate appearance, appropriate insight Eye contact: Present: cooperative, good eye contact, normal speech Thoughts: Present: normal thought pattern, no apparent hallucination Assessment/Plan - Problems/Diagnosis (1) Diverticulitis Problem: Acute Qualifiers: Diverticulitis site: large intestine Diverticulitis bleeding: with bleeding Diverticulitis complication: without perforation or abscess Qualified Code(s): K57.33 - Diverticulitis of large intestine without perforation or abscess with bleeding Narrative: Abdominal pain is improving. Surgery consulted- Diverticulitis suspected and is currently on Zosyn as she had received prior treatment with Cipro and Flagyl in the past. Still complaining of abdominal discomfort with liquids. Will advance diet slowly as tolerated. (2) Lactic acidosis Problem: Acute Narrative: Trending down. Metformin on hold for now. (3) Afib Problem: Chronic Qualifiers: Atrial fibrillation type: chronic Qualified Code(s): I48.2 - Chronic atrial fibrillation (4) HLD (hyperlipidemia) Problem: Chronic Qualifiers: Hyperlipidemia type: unspecified Qualified Code(s): E78.5 - Hyperlipidemia , unspecified (5) HTN (hypertension) Problem: Chronic Qualifiers: Hypertension type: essential hypertension Qualified Code(s): I10 - Essential (primary) hypertension (6) Hypothyroidism Problem: Chronic Qualifiers: Hypothyroidism type: acquired Qualified Code(s): E03.9 - Hypothyroidism, unspecified (7) Hyperamylasemia Problem: Acute (8) Pancreatitis Problem: Resolved Qualifiers: Chronicity: acute Pancreatitis type: unspecified pancreatitis type Acute pancreatitis complication: unspecified Qualified Code(s): K85.90 - Acute pancreatitis without necrosis or infection, unspecified
[2017-02-14 07:19] LABS: Anion Gap 14.2 mmol/L (6.8-13.8); BUN/Creatinine Ratio 9.7 (9.0-21.6); Calcium * 7.6 mg/dL (7.9-10.9); Estimated Creat Clear 35.2
[2017-02-14 07:24] LABS: Potassium 5.2 mmol/L (3.4-4.6)
[2017-02-14] MEDS: INSULIN LISPRO 100 UNITS/ML VIAL SC SCH ×3 (07:46→16:53)
[2017-02-14] MEDS: NORMAL SALINE 1,000 ML IV PRN (07:51)
[2017-02-14] MEDS: LISINOPRIL 10 MG TABLET PO SCH (07:55)
[2017-02-14] MEDS: DILTIAZEM HCL 120 MG CAP.SR.24H PO SCH (08:39)
[2017-02-14] MEDS: SACCHAROMYCES BOULARDII 250 MG CAPSULE PO SCH ×2 (08:39→20:36)
[2017-02-14] MEDS: POTASSIUM CHLORIDE 40 MEQ in NORMAL SALINE 1,000 ML IV SCH (17:05)
[2017-02-14] MEDS: INSULIN GLARGINE,HUM.REC.ANLOG 100 UNITS/ML VIAL SC SCH (20:38)
[2017-02-15] MEDS: NORMAL SALINE 1,000 ML IV PRN ×2 (01:23→15:01)
[2017-02-15] MEDS: PANTOPRAZOLE SODIUM 40 MG in NORMAL SALINE 100 ML IV SCH (03:10)
[2017-02-15] MEDS: PIPERACILLIN SODIUM/TAZOBACTAM 3.375 GM in DEXTROSE 5 % IN WATER 100 ML IV SCH ×6 (05:42→20:56)
--- NOTE | 2017-02-15 06:38 | PN ---
Subjective - Date and Time Seen Date: 02/15/17 Time: 06:35 Subjective Narrative: Mrs. Roche examined this am. She is in no distress. Denies having any diarrhea and abdominal pain. No other acute events according to nursing. Objective - Vitals Vitals: Last Vital Signs Temp 36.8 C 02/15/17 06:30 Pulse 100 02/15/17 06:32 Resp 18 02/15/17 06:30 BP 133/76 02/15/17 06:30 Pulse Ox 97 02/15/17 06:30 - Abnormal Lab Findings Abnormal Lab Findings: Abnormal Lab Results 02/14/17 02/14/17 02/14/17 Range/Units 07:05 07:05 10:10 Potassium 5.2 H D (3.4-4.6) mmol/L Anion Gap 14.2 H (6.8-13.8) mmol/L Lactic Acid, Venous 2.3 H* 2.3 H* (0.4-1.9) mmol/L Calcium 7.6 L (7.9-10.9) mg/dL - Exam Constitutional: Present: Alert, Oriented x3, Cooperative, No distress ENT Exam: Present: normal ENT inspection, hearing grossly normal Neck: Present: full range of motion, supple, normal inspection Breasts: Present: Exam deferred Respiratory: Present: lungs clear, normal breath sounds, No rales Cardiovascular/Chest: Present: normal peripheral pulses, regular rate, rhythm, no chest tenderness, no murmur Abdomen: Present: Normal bowel sounds, soft, nontender /Rectal: Present: Exam deferred Extremity: Present: normal range of motion, non-tender, normal inspection Skin Exam: Present: warm/dry, no cyanosis Lymphatic: Present: no adenopathy Neurologic: Present: no motor/sensory deficits, normal mood/affect, oriented x 3 Appearance: Present: appropriate appearance, appropriate insight Eye contact: Present: cooperative, good eye contact, normal speech Thoughts: Present: normal thought pattern, no apparent hallucination Assessment/Plan - Problems/Diagnosis (1) Diverticulitis Problem: Acute Qualifiers: Diverticulitis site: large intestine Diverticulitis bleeding: with bleeding Diverticulitis complication: without perforation or abscess Qualified Code(s): K57.33 - Diverticulitis of large intestine without perforation or abscess with bleeding Narrative: Surgery consulted and following pt; Abdominal pain found to be likely related to Diverticulitis. Started on Zosyn as she has been treated previously with Cipro and Flagyl. Will advance diet from clear liquids to full liquids. Continue coverage with the Zosyn. (2) Lactic acidosis Problem: Acute Narrative: Lactic acid trending down. Metformin on hold. (3) Afib Problem: Chronic Qualifiers: Atrial fibrillation type: chronic Qualified Code(s): I48.2 - Chronic atrial fibrillation (4) HLD (hyperlipidemia) Problem: Chronic Qualifiers: Hyperlipidemia type: unspecified Qualified Code(s): E78.5 - Hyperlipidemia , unspecified (5) HTN (hypertension) Problem: Chronic Qualifiers: Hypertension type: essential hypertension Qualified Code(s): I10 - Essential (primary) hypertension (6) Hypothyroidism Problem: Chronic Qualifiers: Hypothyroidism type: acquired Qualified Code(s): E03.9 - Hypothyroidism, unspecified (7) Hyperamylasemia Problem: Acute (8) Pancreatitis Problem: Resolved Qualifiers: Chronicity: acute Pancreatitis type: unspecified pancreatitis type Acute pancreatitis complication: unspecified Qualified Code(s): K85.90 - Acute pancreatitis without necrosis or infection, unspecified
[2017-02-15] MEDS: INSULIN LISPRO 100 UNITS/ML VIAL SC SCH ×3 (07:22→16:55)
[2017-02-15] MEDS: LISINOPRIL 10 MG TABLET PO SCH (07:22)
[2017-02-15] MEDS: LEVOTHYROXINE SODIUM 125 MCG TABLET PO SCH (07:23)
[2017-02-15] MEDS: SACCHAROMYCES BOULARDII 250 MG CAPSULE PO SCH ×2 (08:42→20:57)
[2017-02-15] MEDS: DILTIAZEM HCL 120 MG CAP.SR.24H PO SCH (08:42)
[2017-02-15] MEDS: INSULIN GLARGINE,HUM.REC.ANLOG 100 UNITS/ML VIAL SC SCH (21:01)
[2017-02-16] MEDS: PANTOPRAZOLE SODIUM 40 MG in NORMAL SALINE 100 ML IV SCH (03:33)
[2017-02-16] MEDS: NORMAL SALINE 1,000 ML IV PRN ×2 (04:41→17:08)
[2017-02-16] MEDS: PIPERACILLIN SODIUM/TAZOBACTAM 3.375 GM in DEXTROSE 5 % IN WATER 100 ML IV SCH ×6 (04:43→20:53)
--- NOTE | 2017-02-16 06:04 | PN ---
Subjective - Date and Time Seen Date: 02/16/17 Time: 05:50 Subjective Narrative: Pt examined this am. Has no new complains. Is asking when she is going to be fed real food. No other issues according to nursing. Objective - Vitals Vitals: Last Vital Signs Temp 36.6 C 02/16/17 03:00 Pulse 87 02/16/17 03:00 Resp 16 02/16/17 03:00 BP 128/69 02/16/17 03:00 Pulse Ox 99 02/16/17 03:00 - Exam Constitutional: Present: Alert, Oriented x3, Cooperative, No distress ENT Exam: Present: normal ENT inspection, hearing grossly normal Neck: Present: non-tender, full range of motion, supple Respiratory: Present: lungs clear, No rales, No wheezing Cardiovascular/Chest: Present: normal peripheral pulses, regular rate, rhythm, no chest tenderness Abdomen: Present: Normal bowel sounds, soft, nontender, obese /Rectal: Present: Exam deferred Extremity: Present: non-tender, normal inspection, no pedal edema Skin Exam: Present: warm/dry, no cyanosis Lymphatic: Present: no adenopathy Neurologic: Present: no motor/sensory deficits, alert, normal mood/affect, oriented x 3 Appearance: Present: appropriate appearance, appropriate insight Eye contact: Present: cooperative, good eye contact, normal speech Thoughts: Present: normal thought pattern, no apparent hallucination Assessment/Plan - Problems/Diagnosis (1) Diverticulitis Problem: Acute Qualifiers: Diverticulitis site: large intestine Diverticulitis bleeding: with bleeding Diverticulitis complication: without perforation or abscess Qualified Code(s): K57.33 - Diverticulitis of large intestine without perforation or abscess with bleeding Narrative: Surgery consulted and following pt; Abdominal pain found to be likely related to Diverticulitis. Started on Zosyn as she has been treated previously with Cipro and Flagyl. Will advance diet from soft diet/low reside. Continue coverage with the Zosyn. Anticipate discharge on Saturday. (2) Lactic acidosis Problem: Acute (3) Afib Problem: Chronic Qualifiers: Atrial fibrillation type: chronic Qualified Code(s): I48.2 - Chronic atrial fibrillation (4) HLD (hyperlipidemia) Problem: Chronic Qualifiers: Hyperlipidemia type: unspecified Qualified Code(s): E78.5 - Hyperlipidemia , unspecified (5) HTN (hypertension) Problem: Chronic Qualifiers: Hypertension type: essential hypertension Qualified Code(s): I10 - Essential (primary) hypertension (6) Hypothyroidism Problem: Chronic Qualifiers: Hypothyroidism type: acquired Qualified Code(s): E03.9 - Hypothyroidism, unspecified (7) Hyperamylasemia Problem: Acute (8) Pancreatitis Problem: Resolved Qualifiers: Chronicity: acute Pancreatitis type: unspecified pancreatitis type Acute pancreatitis complication: unspecified Qualified Code(s): K85.90 - Acute pancreatitis without necrosis or infection, unspecified
[2017-02-16] MEDS: INSULIN LISPRO 100 UNITS/ML VIAL SC SCH ×3 (06:50→17:05)
[2017-02-16] MEDS: LEVOTHYROXINE SODIUM 125 MCG TABLET PO SCH (06:53)
[2017-02-16] MEDS: LISINOPRIL 10 MG TABLET PO SCH (06:54)
[2017-02-16] MEDS: DILTIAZEM HCL 120 MG CAP.SR.24H PO SCH (08:36)
[2017-02-16] MEDS: SACCHAROMYCES BOULARDII 250 MG CAPSULE PO SCH ×2 (08:36→20:52)
[2017-02-16] MEDS: INSULIN GLARGINE,HUM.REC.ANLOG 100 UNITS/ML VIAL SC SCH (20:54)
[2017-02-17] MEDS: PANTOPRAZOLE SODIUM 40 MG in NORMAL SALINE 100 ML IV SCH (03:41)
[2017-02-17] MEDS: PIPERACILLIN SODIUM/TAZOBACTAM 3.375 GM in DEXTROSE 5 % IN WATER 100 ML IV SCH ×6 (04:38→20:55)
[2017-02-17] MEDS ORDERED: ACETAMINOPHEN 325 MG TABLET PO PRN (06:27)
[2017-02-17] MEDS ORDERED: MECLIZINE HCL 25 MG TABLET PO PRN (06:30)
[2017-02-17] MEDS: LEVOTHYROXINE SODIUM 125 MCG TABLET PO SCH (07:34)
[2017-02-17] MEDS: LISINOPRIL 10 MG TABLET PO SCH (07:35)
[2017-02-17] MEDS: oxyCODONE HCL 5 MG TABLET PO PRN (07:36)
[2017-02-17] MEDS: INSULIN LISPRO 100 UNITS/ML VIAL SC SCH ×3 (07:40→17:07)
[2017-02-17] MEDS: NORMAL SALINE 1,000 ML IV PRN (07:42)
[2017-02-17] MEDS: CHOLECALCIFEROL 1,000 UNIT CAPSULE PO SCH (08:49)
[2017-02-17] MEDS: DILTIAZEM HCL 120 MG CAP.SR.24H PO SCH (08:49)
[2017-02-17] MEDS: ASPIRIN 325 MG TABLET.DR PO SCH (08:49)
[2017-02-17] MEDS: MAGNESIUM OXIDE 400 MG TABLET PO SCH (08:49)
[2017-02-17] MEDS: SACCHAROMYCES BOULARDII 250 MG CAPSULE PO SCH ×2 (08:50→20:55)
[2017-02-17] MEDS: LORATADINE 10 MG TABLET PO SCH (08:50)
[2017-02-17] MEDS ORDERED: ASPIRIN 81 MG TABLET.DR PO SCH (09:00)
--- NOTE | 2017-02-17 09:11 | PN ---
Ashley Note - Interim Narrative: 02/17/17 09:05 Not feeling good. She did not eat last night because she just did not feel good , Says she has not had BM since last Saturday she says ? will get AXR.
[2017-02-17 09:47] LABS: Hematocrit 26.2 % (37.0-47.0); Hemoglobin 9.5 gm/dL (12.5-16.0); Mean Cell Volume 94.9 fl (78-100); Mean Corpuscular Hemoglobin 34.4 pg (27-31); Mean Corpuscular Hgb Conc 36.3 g/dl (32-36); Mean Platelet Volume 10.5 fl (6.0-9.5); Neutrophil # 4.1 K/mm3 (1.3-6.0); Neutrophil % 74.3 % (42-75.0); Platelet Count 180 K/mm3 (150-450); Red Blood Count 2.76 M/mm3 (4.2-5.4); Red Cell Distribution Width 17.2 % (11.5-14.0); White Blood Count 5.6 K/mm3 (4.0-10.5)
[2017-02-17 09:56] LABS: Anion Gap 12.6 mmol/L (6.8-13.8); Calcium * 7.8 mg/dL (7.9-10.9); Carbon Dioxide 26.6 mmol/L (24-32.6); Estimated Creat Clear 39.4; Potassium 3.2 mmol/L (3.4-4.6)
[2017-02-17] MEDS ORDERED: MAGNESIUM HYDROXIDE 30 ML UDC PO ONE (12:06)
[2017-02-17] MEDS ORDERED: POTASSIUM CHLORIDE 20 MEQ TABLET.SA PO ONE (15:40)
--- NOTE | 2017-02-17 15:50 | PN ---
Subjective - Date and Time Seen Date: 02/17/17 Time: 15:46 Subjective Narrative: She does not feel good as she has not yet had any BM. She did not eat her dinner last night. Objective - Review of Systems Generalized/Overall Review: Denies: Weakness, Chills, Fever EENTM: Reports: No Symptoms Reported Respiratory: Denies: Cough, Shortness of Breath Cardiac: Denies: Chest Pain, Edema, Palpitations Abdominal: Reports: Other - feels bloated. Denies: Nausea, Vomiting, Abdominal Pain Genitourinary Symptoms: Denies: Urgency, Frequency Musculoskeletal Complaints: Reports: Joint Pain - Vitals Vitals: Last Vital Signs Temp 36.6 C 02/17/17 10:03 Pulse 92 02/17/17 10:06 Resp 16 02/17/17 10:03 BP 151/86 02/17/17 10:06 Pulse Ox 97 02/17/17 10:03 - Abnormal Lab Findings Abnormal Lab Findings: Abnormal Lab Results 02/17/17 02/17/17 Range/Units 09:21 09:21 RBC 2.76 L (4.2-5.4) M/mm3 Hgb 9.5 L (12.5-16.0) gm/dL Hct 26.2 L (37.0-47.0) % MCH 34.4 H (27-31) pg MCHC 36.3 H (32-36) g/dl RDW 17.2 H (11.5-14.0) % MPV 10.5 H (6.0-9.5) fl Immature Gran % (Auto) 0.50 H (0.001-0.429) % Lymphocytes % 13.6 L (20-51) % Monocytes % 9.5 H (0.0-9) % Lymphocytes # 0.8 L (1.5-3.5) k/mm3 Potassium 3.2 L (3.4-4.6) mmol/L BUN/Creatinine Ratio 6.0 L (9.0-21.6) Random Glucose 199 H (70-110) mg/dL Calcium 7.8 L (7.9-10.9) mg/dL - Exam Constitutional: Present: Alert, Oriented x3, Cooperative, Morbidly obese ENT Exam: Present: hearing grossly normal Neck: Present: supple Breasts: Present: Exam deferred Respiratory: Present: normal breath sounds, No rales, No wheezing Cardiovascular/Chest: Present: regular rate, rhythm, no JVD, no murmur Abdomen: Present: Normal bowel sounds, soft, nontender, distended - slightly Extremity: Present: no calf tenderness, pedal edema Assessment/Plan - Problems/Diagnosis (1) Diverticulitis Problem: Acute Qualifiers: Diverticulitis site: large intestine Diverticulitis bleeding: with bleeding Diverticulitis complication: without perforation or abscess Qualified Code(s): K57.33 - Diverticulitis of large intestine without perforation or abscess with bleeding Narrative: continue with IV antibiotics. Possible discharge in the morning with Augmentin. (2) Hyperamylasemia Problem: Resolved (3) Lactic acidosis Problem: Resolved (4) HLD (hyperlipidemia) Problem: Chronic Qualifiers: Hyperlipidemia type: unspecified Qualified Code(s): E78.5 - Hyperlipidemia , unspecified (5) HTN (hypertension) Problem: Chronic Qualifiers: Hypertension type: essential hypertension Qualified Code(s): I10 - Essential (primary) hypertension (6) Hypothyroidism Problem: Chronic Qualifiers: Hypothyroidism type: acquired Qualified Code(s): E03.9 - Hypothyroidism, unspecified (7) Diabetes mellitus type 2 with complications, uncontrolled Problem: Chronic Qualifiers: Diabetes mellitus retirement insulin use: with exterminator helper use Qualified Code( s): E11.8 - Type 2 diabetes mellitus with unspecified complications; E11.65 - Type 2 diabetes mellitus with hyperglycemia; Z79.4 - superintendent terminal (current) use of insulin (8) Constipation Problem: Acute Narrative: will get AXR. will give MOM.
[2017-02-17] MEDS ORDERED: BISACODYL 5 MG TABLET.DR PO ONE (17:05)
[2017-02-17] MEDS ORDERED: BISACODYL 10 MG SUPP.RECT RC ONE (17:05)
[2017-02-17] MEDS: INSULIN GLARGINE,HUM.REC.ANLOG 100 UNITS/ML VIAL SC SCH (20:56)
[2017-02-17] MEDS ORDERED: FAMOTIDINE 20 MG TABLET PO SCH (21:00)
[2017-02-17] MEDS ORDERED: ROSUVASTATIN CALCIUM 10 MG TABLET PO SCH (21:00)
[2017-02-17] MEDS ORDERED: ATORVASTATIN CALCIUM 10 MG TABLET PO SCH (21:00)
[2017-02-18] MEDS: oxyCODONE HCL 5 MG TABLET PO PRN (00:04)
[2017-02-18] MEDS: PANTOPRAZOLE SODIUM 40 MG in NORMAL SALINE 100 ML IV SCH (04:09)
[2017-02-18] MEDS: PIPERACILLIN SODIUM/TAZOBACTAM 3.375 GM in DEXTROSE 5 % IN WATER 100 ML IV SCH ×2 (05:00)
--- NOTE | 2017-02-18 07:19 | DS ---
(1) Diverticulitis Problem: Acute Qualifiers: Diverticulitis site: large intestine Diverticulitis bleeding: with bleeding Diverticulitis complication: without perforation or abscess Qualified Code(s): K57.33 - Diverticulitis of large intestine without perforation or abscess with bleeding (2) Hyperamylasemia Problem: Resolved (3) Lactic acidosis Problem: Resolved (4) HLD (hyperlipidemia) Problem: Chronic Qualifiers: Hyperlipidemia type: unspecified Qualified Code(s): E78.5 - Hyperlipidemia , unspecified (5) HTN (hypertension) Problem: Chronic Qualifiers: Hypertension type: essential hypertension Qualified Code(s): I10 - Essential (primary) hypertension (6) Hypothyroidism Problem: Chronic Qualifiers: Hypothyroidism type: acquired Qualified Code(s): E03.9 - Hypothyroidism, unspecified (7) Diabetes mellitus type 2 with complications, uncontrolled Problem: Chronic Qualifiers: Diabetes mellitus residential insulin use: with residential use Qualified Code( s): E11.8 - Type 2 diabetes mellitus with unspecified complications; E11.65 - Type 2 diabetes mellitus with hyperglycemia; Z79.4 - terminal 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 ER evaluation revealed elevated wbc at 13.5 with 77% neutrophils and 6 bands, CMP remarkable for serum glucose 265, creatinine 1.32, ast 71 and alt 73. AST and ALT improved from the mid-100s on . Amylase 1474 and lipase 211. UA positive for protein, glucose, 1+ bilirubin, renal epithelial cells, 2+ bacteria, 0-5 hyaline casts, urine mucus and urine culture is currently pending. cdiff negative. lactic acid 4.8 with repeat lactic acid 3.5 after sepsis bolus. Patient c/o n/v/d. denies hematemesis. states vomiting small amount of green liquid with food intermixed. occult stool was positive in ER. However, patient states she has only noticed blood streaks on outside of stool at times and the blood is never mixed in with the stool. patient denies black tarry stools. has history afib, first diagnosed during hospitalization 10/2016. rate controlled with cardizem po. not on anti-coagulation - reports show that patient wanted work up for anemia diagnosed at that hospital visit first prior to starting anticoagulation. Had TSH checked outpatient and came back at 78.977 on 01/31/17 - patient's synthroid was increased to 250 mcg daily. patient had a colonscopy done 11/27/16 that showed severe sigmoid diverticulosis with polyp at 50 cm that was removed. Patient also had EGD same day that showed diffuse chemical gastritis, hiatal hernia. last echo 01/29/17 showed ef 65% with mod LVH, LA mildly dilated, LV hyperdynamic, mild MR, trace TR, pulm HTN with RSVP at 32 and evidence of diastolic dysfuction. CT abdomen/pelvis w/o showed liver, spleen, pancreas and adrenal glands unremarkable. gall bladder distended with multiple stones in the lumen. no pericholecystic fluid or wall thickening seen. bowel is nonobstructed. no evidence of acute diverticulitis. US of abdomen showed no intra or extrahepatic biliary dilatation identified with the common bile duct. gall bladder wall of normal thickness. no sonographic lopez's sign elicited. no pericholecystic fluid collections identified. Patient to be admitted for elevated amylase, abdominal pain, possible pancreatitis with lactic acidosis. She was started on IVF and was ruled out for acute cholecystitis. Surgical consult was done as she was positive for bright red blood in her BM. It was felt that patient had acute diverticulitis and IV Zosyn was started. Her diet was slowly progressed . She is now stable to be discharged. Procedures Performed: none Discharge Disposition: Home self care Disposition: Home self-care Condition: Good Discharge Activity: Activity as tolerated Discharge Diet: Low Fiber Referrals: Kelechi Garcia MD [Primary Care Provider] - Additional Patient Instructions (free text): TCM appt at discharge please. Follow up with PCP in 1 week. Prescriptions (Any new or edited meds): Acetaminophen [Tylenol] 650 mg PO Q6H PRN #30 tablet PRN Reason: Pain/Fever Amox Tr/Potassium Clavulanate [Augmentin 875-125 Tablet] 875 mg PO Q12H #6 tab Saccharomyces Boulardii [Florastor] 250 mg PO BID #60 capsule Complete Home Medications List: Complete Home Medication List: Levothyroxine Sodium [Synthroid] 250 mcg PO DAILY@0700 03/28/16 Aspirin [Aspirin EC] 325 mg PO DAILY #30 tablet. 10/30/16 Insulin Glargine,Hum.rec.anlog [Lantus] 30 units SC HS #1 vial 10/30/16 Lisinopril [Zestril] 30 mg PO DAILY@0700 #.1 tablet 10/30/16 Atorvastatin Calcium [Lipitor] 10 mg PO HS 11/12/16 Cholecalciferol (Vitamin D3) [Vitamin D3] 2,000 unit PO DAILY 11/12/16 Magnesium 400 mg PO DAILY 11/12/16 Ranitidine HCl [Zantac] 150 mg PO HS 11/12/16 Diltiazem HCl [Cardizem Cd] 120 mg PO DAILY 02/11/17 oxyCODONE HCL [Oxycodone] 5 mg PO Q6H PRN 02/12/17 Acetaminophen [Tylenol] 650 mg PO Q6H PRN #30 tablet 02/18/17 Amox Tr/Potassium Clavulanate [Augmentin 875-125 Tablet] 875 mg PO Q12H #6 tab 02/18/17 Saccharomyces Boulardii [Florastor] 250 mg PO BID #60 capsule 02/18/17
[2017-02-18] MEDS: LISINOPRIL 10 MG TABLET PO SCH (07:24)
[2017-02-18] MEDS: LEVOTHYROXINE SODIUM 125 MCG TABLET PO SCH (07:24)
[2017-02-18 07:25] VITALS: BP 152/82
[2017-02-18] MEDS: INSULIN LISPRO 100 UNITS/ML VIAL SC SCH (07:25)
[2017-02-18] MEDS ORDERED: POTASSIUM CHLORIDE 20 MEQ TABLET.SA PO PRN (07:30)
[2017-02-18] MEDS ORDERED: POTASSIUM CHLORIDE 20 MEQ TABLET.SA PO ONE (08:38)
[2017-02-18] MEDS: MAGNESIUM OXIDE 400 MG TABLET PO SCH (09:04)
[2017-02-18] MEDS: SACCHAROMYCES BOULARDII 250 MG CAPSULE PO SCH (09:04)
[2017-02-18] MEDS: ASPIRIN 325 MG TABLET.DR PO SCH (09:04)
[2017-02-18] MEDS: CHOLECALCIFEROL 1,000 UNIT CAPSULE PO SCH (09:04)
[2017-02-18] MEDS: LORATADINE 10 MG TABLET PO SCH (09:05)
[2017-02-18] MEDS: DILTIAZEM HCL 120 MG CAP.SR.24H PO SCH (09:05)
== END 2017-02-18 11:25 | disposition home or self-care (01) | DRG 378 ==
LOC: ER 20:23 → MS 02-12 01:14
PROVIDERS: ADMIT Nurse Practitioner Critical Care Medicine; ATTEND Internal Medicine
DX: K57.33 Diverticulitis of large intestine without perforation or abscess with bleeding (principal); E87.2 Acidosis; I50.32 Chronic diastolic (congestive) heart failure; R74.8 Abnormal levels of other serum enzymes; D72.829 Elevated white blood cell count, unspecified; K59.00 Constipation, unspecified; E78.5 Hyperlipidemia, unspecified; I10 Essential (primary) hypertension; E03.9 Hypothyroidism, unspecified; E11.65 Type 2 diabetes mellitus with hyperglycemia; K29.60 Other gastritis without bleeding; I27.2 Other secondary pulmonary hypertension; I48.2 Chronic atrial fibrillation; Z79.4 Long term (current) use of insulin
CPT/HCPCS: 36415; 71010; 74020; 74176; 76700; 78226; 80048; 80053; 81001; 82150; 82272; 83605; 83690; 84132; 85014; 85018; 85025; 85610; 85730; 87040; 87045; 87046; 87086; 87205; 87493; 93005; 99285; A9537; J2405

== ENCOUNTER 2017-02-19 12:39 | Emergency (ER) | payer MEDICARE, OTHER ==
[2017-02-19 13:32] VITALS: BP 157/88
--- OUTSIDE RECORDS SUMMARY | 2017-02-19 13:44 | XMS REPORT | Clinical Summary ---
:1935 Author Organization [facility] Address Unavailable [place] [address] Care Team Providers Name Role Phone Unavailable Primary Care Provider Unavailable Source Comments This disclosure is being made pursuant to the [employer] program and maynot contain all information available regarding this patient.[facility] Allergies No Known Allergies Current Medications Be [...] Phone Address MEDICARE MEDICARE A [employer] B [id number] [address] [place] [address] [employer] [id number] Home: [address] [phone] [place] [address] [phone]
--- NOTE | 2017-02-19 13:46 | ERNOTE ---
Medical Problem HPI - General Chief Complaint: Drug Overdose Time Seen by Provider: 02/19/17 13:39 Source: patient Exam Limitations: no limitations - Immun/Allergies/Home Medications Immunizations: IMMUNIZATION HX Immunizations Up to Date Yes History of Influenza Vaccine Yes Hx Pneumococcal Vaccination Yes Allergies/Adverse Reactions: Allergies Iodinated Contrast Media - Oral and Allergy (Unknown, Verified 02/19/17 12:48) Other affected blood sugars Sulfa (Sulfonamide Antibiotics) Adverse Reaction (Intermediate, Verified 12:48) Severe nausea Home Medications: HOME MEDICATIONS Levothyroxine Sodium [Synthroid] 250 mcg PO DAILY@0700 03/28/16 [Last Taken Unknown] Insulin Glargine,Hum.rec.anlog [Lantus] 30 units SC HS #1 vial 10/30/16 [Last Taken Unknown] Lisinopril [Zestril] 30 mg PO DAILY@0700 #.1 tablet 10/30/16 [Last Taken Unknown ] Cholecalciferol (Vitamin D3) [Vitamin D3] 2,000 unit PO DAILY 11/12/16 [Last Taken Unknown] Magnesium 400 mg PO DAILY 11/12/16 [Last Taken Unknown] Ranitidine HCl [Zantac] 150 mg PO HS 11/12/16 [Last Taken Unknown] Diltiazem HCl [Cardizem Cd] 120 mg PO DAILY 02/11/17 [Last Taken Unknown] oxyCODONE HCL [Oxycodone] 5 mg PO Q6H PRN 02/12/17 [Last Taken Unknown] Aspirin 325 mg PO DAILY 02/19/17 [Last Taken Unknown] Atorvastatin Calcium [Lipitor] 10 mg PO 02/19/17 [Last Taken Unknown] Fexofenadine HCl [Claudia Allergy] 180 mg PO DAILY 02/19/17 [Last Taken Unknown] Meclizine HCl [Antivert] 25 mg PO QID PRN 02/19/17 [Last Taken Unknown] metFORMIN HCL [Metformin HCl ER] 1,000 mg PO DAILY 02/19/17 [Last Taken Unknown] - History of Present History Narrative: Patient was discharged from the hospital yesterday, did not want any home health services. This morning there was some confusion as to which medications she was supposed to take and she took three days worth of am medications a few hours apart. Patient does not have any symptoms right now Review of Systems - Review of Systems Constitutional: Present: recent illness. Absent: fever ENT: Absent: nose congestion, sore throat Respiratory: Absent: shortness of breath Cardiology: Absent: chest pain Gastrointestinal/Abdominal: Absent: nausea, abdominal pain Genitourinary: Present: no symptoms reported Neurological: Absent: headache, weakness, numbness - Patient's Past Medical History Patient History - Medical: Anemia, Arthritis, Diabetes Type 2 Insulin Dependent , Fibromyalgia, GERD, Hypothyroidism, Renal Failure, Other Patient History - Cardiac/Respiratory: Atrial Fibrillation, Arrhythmias, CHF, Hypertension, Hyperlipidemia, Other Patient History - Cancer: No Hx of Cancer Patient History - Surgical Procedures: Colonoscopy, D & C, T & A Patient History - Other: None LMP (females 10-50): Menopausal - Family History Mother Family History - Medical: , Diabetes Type 2 Family History - Cardiac/Respiratory: Hypertension, Other Family History - Cancer: No pertinent family hx Father Family History - Medical: , Diabetes Type 2 Family History - Cardiac/Respiratory: Hypertension, Other Family History - Cancer: Other - Social History Living Situations: home Abuse History: No History of abuse Psych History: No pertinent hx Alcohol Use: rarely Drug Use: none - Immunizations Immunizations Up to Date: Yes Hx Pneumococcal Vaccination: Yes History of Influenza Vaccine: Yes Physical Exam - Physical Exam General Appearance: Present: wd/wn, alert, no apparent distress Respiratory: Present: no respiratory distress, normal breath sounds, no accessory muscle use, lungs clear Cardiovascular/Chest: Present: regular rate, rhythm, no murmur Gastrointestinal/Abdominal: Present: nontender, nondistended, soft Extremity Exam: Present: no edema Neurological Exam: Present: alert, oriented, normal mood/affect Skin Exam: Present: normal color, warm/dry ED Progress - Vital Signs Patient's Vital Signs:: I have reviewed the patient's vital signs. Vital Signs: Vital Signs 02/19/17 02/19/17 02/19/17 12:43 13:01 13:29 Temperature 36.8 C Pulse Rate 80 80 85 Respiratory 17 19 Rate Blood Pressure 150/87 157/88 O2 Sat by Pulse 94 94 Oximetry - Progress/Reassessment Chief Complaint: Drug Overdose Progress Note-Subjective: 02/19/17 13:45 see nurses note about poison control advice: doses not high enough to anticipate significant side effect, discussed medication management with patient and daughter, referred to block and case maker Departure - Departure Clinical Impression: Overdose Qualifiers: Encounter type: initial encounter Injury intent: accidental or unintentional Qualified Code(s): T50.901A - Poisoning by unspecified drugs, medicaments and biological substances, accidental (unintentional), initial encounter Disposition: Home self-care Condition: Good Instructions: Drug Overdose Referrals: Kelechi Garcia MD [Primary Care Provider] -
== END 2017-02-19 13:55 | disposition home or self-care (01) ==
LOC: ER 12:39
DX: T50.901A Poisoning by unspecified drugs, medicaments and biological substances, accidental (unintentional), initial encounter (principal); E11.9 Type 2 diabetes mellitus without complications

== ENCOUNTER 2018-12-31 14:22 | Inpatient (IN) ==
[2018-12-31 15:18] LABS: Urine Bilirubin Negative (NEGATIVE); Urine Blood Negative /ul (NEGATIVE); Urine Ketone Negative (NEGATIVE); Urine Nitrite Negative (NEGATIVE); Urine Protein Negative (NEGATIVE); Urine Urobilinogen Normal (NORMAL)
--- NOTE | 2018-12-31 15:22 | ERNOTE ---
Medical Problem HPI - General Chief Complaint: General Assessment Time Seen by Provider: 12/31/18 15:08 Source: patient Exam Limitations: no limitations - Immun/Allergies/Home Medications Immunizations: IMMUNIZATION HX Immunizations Up to Date Yes History of Influenza Vaccine Yes Hx Pneumococcal Vaccination Yes Allergies/Adverse Reactions: Allergies Iodinated Contrast- Oral and IV Dye Allergy (Unknown, Verified 12/31/18 14:35) Other affected blood sugars Sulfa (Sulfonamide Antibiotics) Adverse Reaction (Intermediate, Verified 12/31/18 14:35) Severe nausea Home Medications: HOME MEDICATIONS Cholecalciferol (Vitamin D3) [Vitamin D3] 1,000 unit PO DAILY 11/12/16 [Last Taken Unknown] Magnesium 400 mg PO DAILY 11/12/16 [Last Taken Unknown] Cyanocobalamin [Vitamin B-12] 1,000 mcg IJ Q30D 11/15/17 [Last Taken Unknown] Lisinopril [Zestril] 40 mg PO DAILY 11/15/17 [Last Taken 07/07/18 07:30] Polyethylene Glycol 3350 [Miralax] 17 gm PO DAILY PRN 11/15/17 [Last Taken Unknown] Saccharomyces Boulardii [Florastor] 250 mg PO DAILY 11/15/17 [Last Taken Unknown] insulin glargine (U-100) 100 unit/mL subcutaneous solution 30 unit SUBCUT DAILY #30 ml 05/13/18 [Last Taken Unknown] levothyroxine 125 mcg capsule 125 mcg PO DAILY #90 cap 05/13/18 [Last Taken Unknown] ranitidine 150 mg tablet 150 mg PO DAILY #90 tab 07/01/18 [Last Taken Unknown] atorvastatin 10 mg tablet 10 mg PO DAILY #90 tab 07/24/18 [Last Taken Unknown] blood sugar diagnostic strips See Dose Instructions .ROUTE .MEDSUPPLY #100 ea 08/13/18 [Last Taken Unknown] apixaban 5 mg tablet 5 mg PO BID #60 tab 10/23/18 [Last Taken Unknown] oxycodone 5 mg tablet 2.5 mg .ROUTE HS PRN #30 tab 11/04/18 [Last Taken Unknown] albuterol sulfate HFA 90 mcg/actuation aerosol inhaler 2 inh IH Q6H PRN #8 g 11/11/18 [Last Taken Unknown] Furosemide [Lasix] 20 mg PO BID 12/31/18 [Last Taken Unknown] Metoprolol Tartrate [Lopressor] 25 mg PO BID 12/31/18 [Last Taken Unknown] - History of Present History Narrative: Patient had bypass surgery 11/28 and a pacemaker 12/02 in [place]. She was in rehab at the [facility] until yesterday and was send home as per her daughter "she wasn't making any more progress and didn't qualify to stay" The patient has had increasing shortness of breath over the last few days, increasing leg swelling and weight gain. Per her daughter she has been very weak and is only able to walk very short distances and is not able to live by herself at home. Her past history is significant for CHF, afib, HTN and DM Review of Systems - Review of Systems Constitutional: Present: recent illness, fatigue, malaise. Absent: fever, chills ENT: Absent: nose congestion, sore throat Respiratory: Present: See HPI, shortness of breath, cough - dry Cardiology: Absent: chest pain Gastrointestinal/Abdominal: Absent: nausea, vomiting, diarrhea, abdominal pain Genitourinary: Present: no symptoms reported Skin: Absent: rash Neurological: Present: weakness - generalized. 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 Spinal stenosis Onset Date: ~2005 Colonic polyp Onset Date: ~2016 tubular adenoma Hernia Onset Date: ~2006 Surgical History: Surgical History (Updated 12/31/18 @ 14:36 by Cyndee Dhaliwal RN) Hx of heart bypass surgery 11/28/18 H/O dilation and curettage Onset Date: ~1956 History of colonoscopy Onset Date: ~2016 Flores-tubular adenoma. needs completion b.e. 01/2017 as procedure terminated d/t bradycardia. History of echocardiogram Onset Date: ~2016 EF 65% History of esophagogastroduodenoscopy (EGD) Onset Date: ~2016 Dr. Bagan- ani-test negative. '[id number] neg. melo's esophagus History of nasal surgery Onset Date: ~2008 Dr. Jones- nasopharyngoscopy History of tonsillectomy Onset Date: ~1940 History of tonsillectomy and adenoidectomy Onset Date: ~1940 IUD contraception Onset Date: ~1969 now embedded S/P epidural steroid injection Onset Date: ~2007 L5-S1 and L3-L4 Family History: Family History (Updated 04/01/18 @ 10:33 by Alissa Velez) Sister Diabetes Hypertension Father , Age 86 Heart disease Hypertension Diabetes Enlarged heart Mother , Age 79 Hypertension Diabetes Thyroid disease Pacemaker Sister , at No problems noted. Grandmother , Maternal Cancer colon Grandmother , paternal No problems noted. Grandfather , maternal Hypertension CVA (cerebral vascular accident) Grandfather , paternal Myocardial infarction Social History: Preferred Language Norwegian Smoking Status Former smoker Abuse History No History of abuse Psych History No pertinent hx Alcohol Use none Drug Use none (Last Updated 07/04/18 @ 16:46 by Fabian Black DO) No Social History Section defined Physical Exam - Physical Exam General Appearance: Present: wd/wn, alert, obese Head Exam: Present: normal inspection Eye Exam: Normal inspection: bilateral Respiratory: Present: no respiratory distress, no accessory muscle use, lungs clear, decreased breath sounds - throughout, most pronounced on left base Cardiovascular/Chest: Present: regular rate, rhythm, no murmur, other - CABG healing well, no erythema Gastrointestinal/Abdominal: Present: normal bowel sounds, nontender, soft Extremity Exam: Present: pedal edema - +2 Neurological Exam: Present: alert, oriented, normal mood/affect Skin Exam: Present: warm/dry, pallor Progress - Results and Orders Patient's Lab Results:: I have reviewed the patient's lab results. - Vital Signs Patient's Vital Signs:: I have reviewed the patient's vital signs. Vital Signs: Vital Signs 12/31/18 14:32 Temperature 36.3 C Pulse Rate 72 Respiratory Rate 14 Blood Pressure 159/84 H O2 Sat by Pulse Oximetry 95 - EKG EKG #1 EKG: atrial fibrillation, other - ventricular pacing EKG read: Interp. by ca - X-Ray X-Ray #1 X-Ray: chest - 1. Findings compatible with probable active CHF/fluid overload. Interpretation: Reviewed by me - Progress/Reassessment Chief Complaint: General Assessment Progress Note-Subjective: 12/31/18 17:15 discussed with alejandro Blackburn to admit for observation for CHF exacerbation 12/31/18 17:27 updated family on plan Departure Clinical Impression: Acute exacerbation of CHF (congestive heart failure) Qualifiers: Heart failure type: unspecified Qualified Code(s): I50.9 - Heart failure, unspecified - Departure Disposition: Still a patient Condition: Stable
[2018-12-31 15:37] LABS: Urine Appearance Clear (CLEAR); Urine Bacteria None Seen; Urine Color Yellow; Urine RBC None Seen /hpf (0-5); Urine WBC None Seen /hpf (0-5)
[2018-12-31 15:39] LABS: Hematocrit 28.9 % (37.0-47.0); Hemoglobin 9.2 gm/dL (12.5-16.0); Mean Cell Volume 89.8 fl (78-100); Mean Corpuscular Hemoglobin 28.6 pg (27-31); Mean Corpuscular Hgb Conc 31.8 g/dl (32-36); Mean Platelet Volume 9.5 fl (8-12.5); Neutrophil # 6.7 K/mm3 (1.3-6.0); Platelet Count 284 K/mm3 (150-450); Red Blood Count 3.22 M/mm3 (4.2-5.4); Red Cell Distribution Width 14.9 % (11.5-14.0); White Blood Count 8.8 K/mm3 (4.0-10.5)
[2018-12-31 15:55] LABS: Troponin I 0.037 ng/mL (0.00-0.10)
[2018-12-31 15:59] LABS: Anion Gap 12.5 mmol/L (6.8-13.8); BUN/Creatinine Ratio 26.3 (9.0-21.6); Bilirubin, Total 0.7 mg/dL (0.0-1.1); Ca. Corrected For Albumin 9.6 mg/dL (8.4-10.2); Calcium * 9.1 mg/dL (7.9-10.9); Carbon Dioxide 29.8 mmol/L (24-32.6); Potassium 4.3 mmol/L (3.4-4.6); Total Protein 7.4 gm/dL (6.2-8.2)
[2018-12-31] MEDS ORDERED: FUROSEMIDE 10 MG/ML VIAL IV ONE (17:19)
--- NOTE | 2018-12-31 21:12 | HP ---
Chief Complaint - Chief Complaint Date of Service: 12/31/18 Time of Service: 20:58 Chief Complaint: dyspnea History of Present Illness: Tri Roche is an 83-year-old female patient of Dr. Garcia who presented to the emergency room with marked shortness of breath. Evaluation in the ER determined that she was in congestive heart failure with pulmonary edema and peripheral edema. She was given 40 of Lasix IV push and has urinated many times according to her and she notes that her legs are much smaller this evening and she is breathing much easier. She is in no distress the time of my exam this evening but she does not feel very well either. Her past medical history includes congestive heart failure with preserved left ventricular function. She has a pacemaker and her rate and rhythm are totally paced at this time. Earlier today she was in atrial fibrillation but was not in rapid ventricular response. Medical History (Updated 12/31/18 @ 17:29 by Kathleen Avendaño MD) Hypothyroid (Chronic) Onset Date: ~1969 Essential hypertension (Chronic) Onset Date: Unknown GERD (gastroesophageal reflux disease) (Chronic) Onset Date: ~2007 Diabetes mellitus (Chronic) Onset Date: ~1968 Melo's esophagus (Chronic) Onset Date: ~2016 B12 deficiency (Chronic) Onset Date: ~2015 History of pacemaker Diabetic retinopathy Onset Date: ~2008 eye exam- preproliferative diabetic retinopathy in both eyes with diabetic macular edema. Spinal stenosis Onset Date: ~2005 Colonic polyp Onset Date: ~2016 tubular adenoma Hernia Onset Date: ~2006 Surgical History: Surgical History (Updated 12/31/18 @ 14:36 by Cyndee Dhaliwal RN) Hx of heart bypass surgery 11/28/18 H/O dilation and curettage Onset Date: ~1956 History of colonoscopy Onset Date: ~2016 Flores-tubular adenoma. needs completion b.e. 01/2017 as procedure terminated d/t bradycardia. History of echocardiogram Onset Date: ~2016 EF 65% History of esophagogastroduodenoscopy (EGD) Onset Date: ~2016 Dr. Jones- ani-test negative. '[id number] neg. melo's esophagus History of nasal surgery Onset Date: ~2008 Dr. Jones- nasopharyngoscopy History of tonsillectomy Onset Date: ~1940 History of tonsillectomy and adenoidectomy Onset Date: ~1940 IUD contraception Onset Date: ~1969 now embedded S/P epidural steroid injection Onset Date: ~2007 L5-S1 and L3-L4 Family History: Family History (Updated 04/01/18 @ 10:33 by Alissa Velez) Sister Diabetes Hypertension Father , Age 86 Heart disease Hypertension Diabetes Enlarged heart Mother , Age 79 Hypertension Diabetes Thyroid disease Pacemaker Sister , at No problems noted. Grandmother , Maternal Cancer colon Grandmother , paternal No problems noted. Grandfather , maternal Hypertension CVA (cerebral vascular accident) Grandfather , paternal Myocardial infarction Social History: Patient Lives/Resources Home Utilized Occupation Retired Preferred Language Nepali Do you have any spiritism or No cultural preference? Smoking Status Former smoker Have you smoked in the past 12 No months Do you dip or chew tobacco No Abuse History No History of abuse Psych History No pertinent hx Alcohol Use none Drug Use none (Last Updated 07/04/18 @ 16:46 by Fabian Black DO) No Social History Section defined Review Of Systems (GEN) - Review of Systems Generalized/Overall Review: Present: Weakness, Malaise, Fatigue Respiratory: Present: Cough, Shortness of Breath, Wheezing Cardiac: Present: Palpitations Abdominal: Present: No Symptoms Reported Genitourinary: Present: No Symptoms Reported, Other - Diuresing well Musculoskeletal: Present: No Symptoms Reported Neurological: Present: No Symptoms Reported Skin: Present: No Symptoms Reported Endocrine: Present: No Symptoms Reported Misc: All systems neg except as marked Immunizations: IMMUNIZATION HX Immunizations Up to Date Yes History of Influenza Vaccine Yes Hx Pneumococcal Vaccination Yes Allergies/Adverse Reactions: Allergies Allergy/AdvReac Type Severity Reaction Status Date / Time Iodinated Contrast- Oral and Allergy Unknown Other Verified 12/31/18 14:35 IV Dye Sulfa (Sulfonamide AdvReac Intermediate Severe Verified 12/31/18 14:35 Antibiotics) nausea Home Medications: HOME MEDICATIONS Cholecalciferol (Vitamin D3) [Vitamin D3] 1,000 unit PO DAILY 11/12/16 [Last Taken Unknown] Magnesium 400 mg PO DAILY 11/12/16 [Last Taken Unknown] Cyanocobalamin [Vitamin B-12] 1,000 mcg IJ Q30D 11/15/17 [Last Taken 12/04/18] Lisinopril [Zestril] 40 mg PO DAILY 11/15/17 [Last Taken 07/07/18 07:30] Polyethylene Glycol 3350 [Miralax] 17 gm PO DAILY PRN 11/15/17 [Last Taken Unknown] Saccharomyces Boulardii [Florastor] 250 mg PO DAILY 11/15/17 [Last Taken Unknown] insulin glargine (U-100) 100 unit/mL subcutaneous solution 30 unit SUBCUT DAILY #30 ml 05/13/18 [Last Taken Unknown] levothyroxine 125 mcg capsule 125 mcg PO DAILY #90 cap 05/13/18 [Last Taken Unknown] ranitidine 150 mg tablet 150 mg PO DAILY #90 tab 07/01/18 [Last Taken Unknown] blood sugar diagnostic strips See Dose Instructions .ROUTE .MEDSUPPLY #100 ea 08/13/18 [Last Taken Unknown] apixaban 5 mg tablet 5 mg PO BID #60 tab 10/23/18 [Last Taken Unknown] oxycodone 5 mg tablet 2.5 mg .ROUTE HS PRN #30 tab 11/04/18 [Last Taken Unknown] albuterol sulfate HFA 90 mcg/actuation aerosol inhaler 2 inh IH Q6H PRN #8 g 11/11/18 [Last Taken Unknown] Atorvastatin Calcium [Lipitor] 10 mg PO HS 12/31/18 [Last Taken Unknown] Furosemide [Lasix] 20 mg PO BID 12/31/18 [Last Taken Unknown] Metoprolol Tartrate [Lopressor] 25 mg PO BID 12/31/18 [Last Taken Unknown] Exam - Exam Vital Signs: Vital Signs - Last Taken Temp 36.8 C 12/31/18 18:45 Pulse 72 12/31/18 18:45 Resp 24 H 12/31/18 18:45 BP 158/73 H 12/31/18 18:45 Pulse Ox 95 12/31/18 18:45 Constitutional: Present: Alert, Oriented x3, Cooperative, Well developed, Well nourished, Mild distress, Obese Eye Exam: bilateral eye: normal inspection, PERRL, EOMI Neck: Present: non-tender, limited range of motion Back Exam: Present: normal inspection, no CVA tenderness, no vertebral tenderness Breasts: Present: Exam deferred Respiratory: Present: decreased breath sounds, rales, rhonchi, wheezing, expiration (prolonged), other - Mild tachypnea Cardiovascular/Chest: Present: normal peripheral pulses, regular rate, rhythm, no chest tenderness, JVD, irregularly irregular, edema Peripheral Pulses: carotid (R): 2+, carotid (L): 2+, radial (R): 2+, radial (L): 2+ Abdomen: Present: Normal bowel sounds, soft, nontender, nondistended, no rebound tenderness, no hepatospenomegaly, no masses, obese /Rectal: Present: Exam deferred Extremity: Present: normal range of motion, non-tender, normal inspection, lower extremity edema, pedal edema, swelling Skin Exam: Present: warm/dry, pallor Lymphatic: Present: no adenopathy Neurologic: Present: transfer and line up worker II-XII nml as tested, no motor/sensory deficits, alert, normal mood/affect Appearance: Present: appropriate appearance, appropriate insight, disheveled Eye contact: Present: cooperative, good eye contact, normal speech Thoughts: Present: normal thought pattern, no apparent hallucination Diagnostic Studies: Abnormal Lab Results 12/31/18 12/31/18 Range/Units 15:30 15:30 RBC 3.22 L (4.2-5.4) M/mm3 Hgb 9.2 L (12.5-16.0) gm/dL Hct 28.9 L (37.0-47.0) % MCHC 31.8 L (32-36) g/dl RDW 14.9 H (11.5-14.0) % Immature Gran % (Auto) 0.60 H (0.001-0.429) % Immature Gran # (Auto) 0.05 H (0.000-0.0310) K/mm3 Neutrophils % 76.0 H (42-75.0) % Lymphocytes % 10.9 L (20-51) % Monocytes % 11.8 H (0.0-9) % Neutrophils # 6.7 H (1.3-6.0) K/mm3 Lymphocytes # 0.96 L (1.5-3.5) k/mm3 Sodium 131 L (132-142) mmol/L Chloride 93 L (97-106) mmol/L BUN 35 H D (3-23) mg/dL Est GFR (Non-Af Amer) 40 L D (60-130) mL/min BUN/Creatinine Ratio 26.3 H (9.0-21.6) AST 59 H (0-48) U/L B-Natriuretic Peptide 6536 H (5-550) pg/mL Albumin 3.0 L (3.4-5.0) gm/dl Laboratory Results WBC 8.8 K/mm3 (4.0-10.5) 12/31/18 15:30 RBC 3.22 M/mm3 (4.2-5.4) L 12/31/18 15:30 Hgb 9.2 gm/dL (12.5-16.0) L 12/31/18 15:30 Hct 28.9 % (37.0-47.0) L 12/31/18 15:30 MCV 89.8 fl (78-100) 12/31/18 15:30 MCH 28.6 pg (27-31) 12/31/18 15:30 MCHC 31.8 g/dl (32-36) L 12/31/18 15:30 RDW 14.9 % (11.5-14.0) H 12/31/18 15:30 Plt Count 284 K/mm3 (150-450) 12/31/18 15:30 MPV 9.5 fl (8-12.5) 12/31/18 15:30 Immature Gran % (Auto) 0.60 % (0.001-0.429) H 12/31/18 15:30 Immature Gran # (Auto) 0.05 K/mm3 (0.000-0.0310) H 12/31/18 15:30 76.0 % (42-75.0) H 12/31/18 15:30 10.9 % (20-51) L 12/31/18 15:30 11.8 % (0.0-9) H 12/31/18 15:30 0.5 % (0.0-3.0) 12/31/18 15:30 0.2 % (0.0-1.0) 12/31/18 15:30 Nucleated RBC % 0.0 k/mm3 (0-1) 12/31/18 15:30 6.7 K/mm3 (1.3-6.0) H 12/31/18 15:30 0.96 k/mm3 (1.5-3.5) L 12/31/18 15:30 1.0 k/mm3 (0.0-1.0) 12/31/18 15:30 0.0 k/mm3 (0.0-0.7) 12/31/18 15:30 Absolute Basophils 0.0 k/mm3 (0.0-0.1) 12/31/18 15:30 Sodium 131 mmol/L (132-142) L 12/31/18 15:30 131 mmol/L (130-142) 12/31/18 15:30 Potassium 4.3 mmol/L (3.4-4.6) 12/31/18 15:30 Chloride 93 mmol/L (97-106) L 12/31/18 15:30 Carbon Dioxide 29.8 mmol/L (24-32.6) 12/31/18 15:30 12.5 mmol/L (6.8-13.8) 12/31/18 15:30 BUN 35 mg/dL (3-23) H D 12/31/18 15:30 1.33 mg/dL (0.4-1.4) 12/31/18 15:30 Est GFR (Non-Af Amer) 40 mL/min (60-130) L D 12/31/18 15:30 26.3 (9.0-21.6) H 12/31/18 15:30 109 mg/dL (70-110) 12/31/18 15:30 Calcium 9.1 mg/dL (7.9-10.9) 12/31/18 15:30 Calcium Adj for Albumin 9.6 mg/dL (8.4-10.2) 12/31/18 15:30 0.7 mg/dL (0.0-1.1) 12/31/18 15:30 AST 59 U/L (0-48) H 12/31/18 15:30 ALT 52 U/L (19-67) 12/31/18 15:30 121 U/L (50-170) 12/31/18 15:30 0.037 ng/mL (0.00-0.10) 12/31/18 15:30 B-Natriuretic Peptide 6536 pg/mL (5-550) H 12/31/18 15:30 7.4 gm/dL (6.2-8.2) 12/31/18 15:30 3.0 gm/dl (3.4-5.0) L 12/31/18 15:30 Yellow 12/31/18 15:11 Clear (CLEAR) 12/31/18 15:11 7.0 pH (5.0-7.0) 12/31/18 15:11 Ur Specific [place] 1.010 SP.GR. (1.005-1.010) 12/31/18 15:11 Negative mg/dL (NEGATIVE) 12/31/18 15:11 Negative mg/dL (NEGATIVE) 12/31/18 15:11 Negative mg/dL (NEGATIVE) 12/31/18 15:11 Negative /ul (NEGATIVE) 12/31/18 15:11 Negative (NEGATIVE) 12/31/18 15:11 Negative mg/dl (NEGATIVE) 12/31/18 15:11 Normal EU/dl (NORMAL) 12/31/18 15:11 Ur Leukocyte Esterase Negative /ul (NEGATIVE) 12/31/18 15:11 None seen /hpf (0-5) 12/31/18 15:11 None seen /hpf (0-5) 12/31/18 15:11 Ur Epithelial Cells 0-5 /hpf (0-5) 12/31/18 15:11 None seen (NONE) 12/31/18 15:11 No culture indicated 12/31/18 15:11 Assessment/Plan - Narrative Narrative: Mrs. Roche has given up her fluids easily today with the 40 of Lasix from emergency room. She is no longer in respiratory distress and is breathing much easier. I will not give her another diuretic tonight but I will order one for 7:[address] Garcia will see her tomorrow morning. Morning lab is ordered. - Assessment/Plan (1) Acute exacerbation of CHF (congestive heart failure) Problem: Acute Qualifiers: Heart failure type: unspecified Qualified Code(s): I50.9 - Heart failure, unspecified (2) New onset a-fib Problem: Acute (3) T2DM (type 2 diabetes mellitus) Problem: Chronic Qualifiers: Diabetes mellitus shelter insulin use: without shelter use Diabetes mellitus complication status: with circulatory complication Diabetes mellitus complication detail: with other circulatory complications Qualified Code(s): E11.59 - Type 2 diabetes mellitus with other circulatory complications (4) Obesity Problem: Chronic Qualifiers: Obesity type: due to excess calories Obesity classification: adult class 2 (BMI 35 - 39.9) Serious obesity comorbidity presence: with serious comorbidity Body mass index: BMI 37.0-37.9 Qualified Code(s): E66.01 - Morbid (severe) obesity due to excess calories; Z68.37 - Body mass index (BMI) 37.0-37.9, adult
[2018-12-31] MEDS ORDERED: ALBUTEROL SULFATE 60 PUFF INHALER IH PRN (21:14)
[2018-12-31] MEDS ORDERED: POLYETHYLENE GLYCOL 3350 17 GM PACKET PO PRN (21:14)
[2018-12-31] MEDS ORDERED: ACETAMINOPHEN 500 MG TABLET PO PRN (21:23)
[2018-12-31] MEDS ORDERED: ONDANSETRON 4 MG TAB.RAPDIS PO PRN (21:23)
[2018-12-31] MEDS ORDERED: ALBUTEROL SULFATE 2.5 MG/0.5 ML VIAL.NEB IH PRN (21:45)
[2018-12-31] MEDS: oxyCODONE HCL 5 MG TABLET PO PRN (21:53)
[2018-12-31] MEDS: APIXABAN 5 MG TABLET PO SCH (21:54)
[2018-12-31] MEDS: METOPROLOL TARTRATE 25 MG TABLET PO SCH (21:54)
[2018-12-31 22:02] LABS: CKMB 1.8 ng/mL (0.0-9.0); Troponin I 0.044 ng/mL (0.00-0.10)
[2019-01-01 05:49] LABS: Hematocrit 30.2 % (37.0-47.0); Hemoglobin 9.7 gm/dL (12.5-16.0); Mean Cell Volume 89.6 fl (78-100); Mean Corpuscular Hemoglobin 28.8 pg (27-31); Mean Corpuscular Hgb Conc 32.1 g/dl (32-36); Neutrophil # 6.5 K/mm3 (1.3-6.0); Platelet Count 251 K/mm3 (150-450); Red Blood Count 3.37 M/mm3 (4.2-5.4); Red Cell Distribution Width 15.7 % (11.5-14.0); White Blood Count 8.9 K/mm3 (4.0-10.5)
[2019-01-01 06:23] LABS: Albumin * 2.8 gm/dl (3.4-5.0); Anion Gap 12.4 mmol/L (6.8-13.8); BUN/Creatinine Ratio 28.2 (9.0-21.6); Calcium * 8.4 mg/dL (7.9-10.9); Carbon Dioxide 26.3 mmol/L (24-32.6); Potassium 4.7 mmol/L (3.4-4.6); Total Protein 7.4 gm/dL (6.2-8.2)
[2019-01-01] MEDS ORDERED: FUROSEMIDE 10 MG/ML VIAL IV SCH (07:00)
[2019-01-01] MEDS ORDERED: POLYETHYLENE GLYCOL 3350 119 GM BTL PO PRN (07:01)
--- NOTE | 2019-01-01 08:53 | PN ---
Subjective - Date and Time Seen Date: 01/01/19 Time: 08:49 Subjective Narrative: patient feels weak. Na is down. Objective - Review of Systems Generalized/Overall Review: Denies: Chills, Fever EENTM: Denies: Blurred Vision Respiratory: Reports: Shortness of Breath, Orthopnea. Denies: Wheezing Cardiac: Reports: Edema. Denies: Chest Pain Abdominal: Denies: Nausea, Vomiting Genitourinary Symptoms: Denies: Urgency, Frequency Musculoskeletal Complaints: Reports: Joint Pain Neurological: Denies: Headache Skin: Denies: Lesions, Rash Endocrine: Denies: Intolerance to Cold, Intolerance to Heat Misc: All systems neg except as marked - Vitals Vitals: Last Vital Signs Temp 36.4 C 01/01/19 07:10 Pulse 70 01/01/19 07:10 Resp 20 01/01/19 07:10 BP 143/65 01/01/19 07:10 Pulse Ox 98 01/01/19 07:10 - Abnormal Lab Findings Abnormal Lab Findings: Abnormal Lab Results 12/31/18 12/31/18 12/31/18 Range/Units 15:30 15:30 21:33 RBC 3.22 L (4.2-5.4) M/mm3 Hgb 9.2 L (12.5-16.0) gm/dL Hct 28.9 L (37.0-47.0) % MCHC 31.8 L (32-36) g/dl RDW 14.9 H (11.5-14.0) % Immature Gran % (Auto) 0.60 H (0.001-0.429) % Immature Gran # (Auto) 0.05 H (0.000-0.0310) K/mm3 Neutrophils % 76.0 H (42-75.0) % Lymphocytes % 10.9 L (20-51) % Monocytes % 11.8 H (0.0-9) % Neutrophils # 6.7 H (1.3-6.0) K/mm3 Lymphocytes # 0.96 L (1.5-3.5) k/mm3 Monocytes # (0.0-1.0) k/mm3 Sodium 131 L (132-142) mmol/L Plasma Sodium (130-142) mmol/L Potassium (3.4-4.6) mmol/L Chloride 93 L (97-106) mmol/L BUN 35 H D (3-23) mg/dL Est GFR (Non-Af Amer) 40 L D (60-130) mL/min BUN/Creatinine Ratio 26.3 H (9.0-21.6) Random Glucose (70-110) mg/dL AST 59 H (0-48) U/L CK-MB (CK-2) Rel Index 4.4 H (0.0-3.6) B-Natriuretic Peptide 6536 H (5-550) pg/mL Albumin 3.0 L (3.4-5.0) gm/dl 01/01/19 01/01/19 Range/Units 05:25 05:25 RBC 3.37 L (4.2-5.4) M/mm3 Hgb 9.7 L (12.5-16.0) gm/dL Hct 30.2 L (37.0-47.0) % MCHC (32-36) g/dl RDW 15.7 H (11.5-14.0) % Immature Gran % (Auto) (0.001-0.429) % Immature Gran # (Auto) (0.000-0.0310) K/mm3 Neutrophils % (42-75.0) % Lymphocytes % 10.9 L (20-51) % Monocytes % 15.0 H (0.0-9) % Neutrophils # 6.5 H (1.3-6.0) K/mm3 Lymphocytes # 0.97 L (1.5-3.5) k/mm3 Monocytes # 1.3 H (0.0-1.0) k/mm3 Sodium 126 L (132-142) mmol/L Plasma Sodium 125 L (130-142) mmol/L Potassium 4.7 H (3.4-4.6) mmol/L Chloride 92 L (97-106) mmol/L BUN 31 H (3-23) mg/dL Est GFR (Non-Af Amer) 50 L D (60-130) mL/min BUN/Creatinine Ratio 28.2 H (9.0-21.6) Random Glucose 64 L D (70-110) mg/dL AST 95 H (0-48) U/L CK-MB (CK-2) Rel Index (0.0-3.6) B-Natriuretic Peptide (5-550) pg/mL Albumin 2.8 L (3.4-5.0) gm/dl - Exam Constitutional: Present: Alert, Oriented x3, Cooperative ENT Exam: Present: hearing grossly normal Neck: Present: supple Respiratory: Present: decreased breath sounds, wheezing - occasional, No wheezing Cardiovascular/Chest: Present: regular rate, rhythm, no murmur, JVD, other - faint heart sounds Abdomen: Present: Normal bowel sounds, soft, nontender, nondistended Extremity: Present: no calf tenderness, lower extremity edema Assessment/Plan Plan Narrative: We will continue with diuresis and present management. PT is on consult. - Problems/Diagnosis (1) Hyponatremia Problem: Acute Narrative: likely due to acute hypervolemic, hypotonic hyponatremia, asymptomatic. She is going to get another IV lasix at 10 a.m. on top of her usual home oral Lasix. (2) Acute exacerbation of CHF (congestive heart failure) Problem: Acute Qualifiers: Heart failure type: unspecified Qualified Code(s): I50.9 - Heart failure, unspecified Narrative: will continue with diuresis. will try to get her Echo form the other hospital. (3) Afib Problem: Chronic Qualifiers: Atrial fibrillation type: chronic Qualified Code(s): I48.2 - Chronic atrial fibrillation (4) Diabetes mellitus Problem: Chronic Qualifiers: Diabetes mellitus type: type 2 Diabetes mellitus long term care social worker insulin use: without long term care social worker use Diabetes mellitus complication status: with kidney complications Diabetes mellitus complication detail: with chronic kidney disease Chronic kidney disease stage: stage 3 (moderate) Qualified Code(s): E11.22 - Type 2 diabetes mellitus with diabetic chronic kidney disease; N18.3 - Chronic kidney disease, stage 3 (moderate) (5) Essential hypertension Problem: Chronic (6) HLD (hyperlipidemia) Problem: Chronic Qualifiers: Hyperlipidemia type: unspecified Qualified Code(s): E78.5 - Hyperlipidemia, unspecified (7) Hypothyroid Problem: Chronic
[2019-01-01] MEDS ORDERED: INSULIN GLARGINE,HUM.REC.ANLOG 100 UNITS/ML VIAL SC SCH (09:00)
[2019-01-01] MEDS ORDERED: NON-FORMULARY 1 DOSE DOSE (Cholecalciferol (Vitamin D3) [Vitamin D3] 1,000 UNIT) PO SCH (09:00)
[2019-01-01] MEDS ORDERED: RANITIDINE HCL 150 MG PO SCH (09:00)
[2019-01-01] MEDS ORDERED: MAGNESIUM 400 MG PO SCH (09:00)
[2019-01-01] MEDS ORDERED: LEVOTHYROXINE SODIUM 125 MCG PO SCH (09:00)
[2019-01-01] MEDS: METOPROLOL TARTRATE 25 MG TABLET PO SCH ×2 (09:55→20:55)
[2019-01-01] MEDS: CHOLECALCIFEROL 1,000 UNIT CAPSULE PO SCH (09:55)
[2019-01-01] MEDS: LEVOTHYROXINE SODIUM 125 MCG TABLET PO SCH (09:55)
[2019-01-01] MEDS: APIXABAN 5 MG TABLET PO SCH ×2 (09:55→20:55)
[2019-01-01] MEDS: MAGNESIUM OXIDE 400 MG TABLET PO SCH (09:56)
[2019-01-01] MEDS: SACCHAROMYCES BOULARDII 250 MG CAPSULE PO SCH (09:56)
[2019-01-01] MEDS: FAMOTIDINE 20 MG TABLET PO SCH (09:56)
[2019-01-01] MEDS: LISINOPRIL 40 MG TABLET PO SCH (09:56)
[2019-01-01] MEDS ORDERED: FUROSEMIDE 10 MG/ML VIAL IV ONE (10:16)
[2019-01-01] MEDS: ALPRAZolam 0.5 MG TABLET PO PRN ×2 (10:39→16:37)
[2019-01-01] MEDS: FUROSEMIDE 20 MG TABLET PO SCH ×2 (10:39→16:38)
[2019-01-01] MEDS ORDERED: ALPRAZolam 0.25 MG TABLET PO PRN (17:46)
[2019-01-01] MEDS ORDERED: ROSUVASTATIN CALCIUM 10 MG TABLET PO SCH (21:00)
[2019-01-01] MEDS ORDERED: ATORVASTATIN CALCIUM 10 MG PO SCH (21:00)
[2019-01-01] MEDS ORDERED: DEXTROSE 50%-WATER 50 ML SYRG ONE (21:03)
[2019-01-01] MEDS: oxyCODONE HCL 5 MG TABLET PO PRN (23:09)
[2019-01-02] MEDS: LEVOTHYROXINE SODIUM 125 MCG TABLET PO SCH (06:58)
[2019-01-02 08:04] LABS: Hematocrit 27.9 % (37.0-47.0); Hemoglobin 8.9 gm/dL (12.5-16.0); Mean Cell Volume 90.6 fl (78-100); Mean Corpuscular Hemoglobin 28.9 pg (27-31); Mean Corpuscular Hgb Conc 31.9 g/dl (32-36); Mean Platelet Volume 9.8 fl (8-12.5); Neutrophil # 8.2 K/mm3 (1.3-6.0); Neutrophil % 78.5 % (42-75.0); Platelet Count 281 K/mm3 (150-450); Red Blood Count 3.08 M/mm3 (4.2-5.4); Red Cell Distribution Width 15.5 % (11.5-14.0); White Blood Count 10.4 K/mm3 (4.0-10.5)
[2019-01-02 08:34] LABS: Anion Gap 11.1 mmol/L (6.8-13.8); BUN/Creatinine Ratio 26.2 (9.0-21.6); Calcium * 8.1 mg/dL (7.9-10.9); Carbon Dioxide 31.6 mmol/L (24-32.6); Estimated Creat Clear 23.1; Potassium 3.7 mmol/L (3.4-4.6)
[2019-01-02] MEDS: MAGNESIUM OXIDE 400 MG TABLET PO SCH (08:46)
[2019-01-02] MEDS: FUROSEMIDE 20 MG TABLET PO SCH ×2 (08:46→16:57)
[2019-01-02] MEDS: CHOLECALCIFEROL 1,000 UNIT CAPSULE PO SCH (08:46)
[2019-01-02] MEDS: METOPROLOL TARTRATE 25 MG TABLET PO SCH (08:46)
[2019-01-02] MEDS: LISINOPRIL 40 MG TABLET PO SCH (08:46)
[2019-01-02] MEDS: APIXABAN 5 MG TABLET PO SCH (08:46)
[2019-01-02] MEDS: SACCHAROMYCES BOULARDII 250 MG CAPSULE PO SCH (08:46)
[2019-01-02] MEDS: FAMOTIDINE 20 MG TABLET PO SCH (08:46)
[2019-01-02] MEDS ORDERED: INSULIN GLARGINE,HUM.REC.ANLOG 100 UNITS/ML VIAL SC SCH (09:00)
[2019-01-02 09:02] LABS: Iron 21 mcg/dL (35-120); Transferrin Sat. (% Sat.) 7 % (15-55)
[2019-01-02 09:28] LABS: Folate 17.7 ng/mL (8.6-58.9)
[2019-01-02] MEDS ORDERED: FUROSEMIDE 10 MG/ML VIAL IV ONE (10:18)
--- NOTE | 2019-01-02 10:42 | DS ---
(1) Hyponatremia Problem: Resolved (2) Acute exacerbation of CHF (congestive heart failure) Problem: Resolved Qualifiers: Heart failure type: unspecified Qualified Code(s): I50.9 - Heart failure, unspecified (3) Afib Problem: Chronic Qualifiers: Atrial fibrillation type: chronic Qualified Code(s): I48.2 - Chronic atrial fibrillation (4) Diabetes mellitus Problem: Chronic Qualifiers: Diabetes mellitus type: type 2 Diabetes mellitus termite technician insulin use: without termite technician use Diabetes mellitus complication status: with kidney complications Diabetes mellitus complication detail: with chronic kidney disease Chronic kidney disease stage: stage 3 (moderate) Qualified Code(s): E11.22 - Type 2 diabetes mellitus with diabetic chronic kidney disease; N18.3 - Chronic kidney disease, stage 3 (moderate) (5) Essential hypertension Problem: Chronic (6) HLD (hyperlipidemia) Problem: Chronic Qualifiers: Hyperlipidemia type: unspecified Qualified Code(s): E78.5 - Hyperlipidemia, unspecified (7) Hypothyroid Problem: Chronic (8) COPD (chronic obstructive pulmonary disease) Problem: Chronic Qualifiers: COPD type: unspecified COPD Qualified Code(s): J44.9 - Chronic obstructive pulmonary disease, unspecified Description of Stay: Tri Roche is an 83-year-old female who presented to the emergency room with marked shortness of breath and was admitted on on 12/31/18. Admitting diagnosis was congestive heart failure with pulmonary edema and peripheral edema. She was started on IV lasix. Her follow up labs showed hyponatremia and likely due to hypotnic , hypervolemic, hypnoatremai, acute and asymptomatic. She was further diuresed and it has come up today . Her BNP also improved. She is in no distress the time of my exam and feels betre than on her admisssion. Her past medical history includes congestive heart failure with preserved left ventricular function. She had a recent CABG 3 vessels. She has a pacemaker for tachbrady syndrome and her rate and rhythm are totally paced at this time. Her BS went low and her lantus was decreased to 20 units from 30 units. PT evaluated and recommended home PT but daughter says she is scheduled for cardiac rehab in [place] next week. She is stable to be discharged today. Procedures Performed: none Results and Findings: Lab Pending Results 12/31/18 15:11: Urine Color Yellow, Urine Appearance Clear, Urine pH 7.0, Ur Specific [place] 1.010, Urine Protein Negative, Urine Glucose (UA) Negative, Urine Ketones Negative, Urine Blood Negative, Urine Nitrate Negative, Urine Bilirubin Negative, Urine Urobilinogen Normal, Ur Leukocyte Esterase Negative, Urine RBC None seen, Urine WBC None seen, Ur Epithelial Cells 0-5, Urine Bacteria None seen, Urine Culture Comments No culture indicated 12/31/18 15:30: WBC 8.8, RBC 3.22 L, Hgb 9.2 L, Hct 28.9 L, MCV 89.8, MCH 28.6, MCHC 31.8 L, RDW 14.9 H, Plt Count 284, MPV 9.5, Immature Gran % (Auto) 0.60 H, Immature Gran # (Auto) 0.05 H, Neutrophils % 76.0 H, Lymphocytes % 10.9 L, Monocytes % 11.8 H, Eosinophils % 0.5, Basophils % 0.2, Nucleated RBC % 0.0, Neutrophils # 6.7 H, Lymphocytes # 0.96 L, Monocytes # 1.0, Eosinophils # 0.0, Absolute Basophils 0.0 12/31/18 15:30: Sodium 131 L, Plasma Sodium 131, Potassium 4.3, Chloride 93 L, Carbon Dioxide 29.8, Anion Gap 12.5, BUN 35 H D, Creatinine 1.33, Est GFR (Non- Af Amer) 40 L D, BUN/Creatinine Ratio 26.3 H, Random Glucose 109, Calcium 9.1, Calcium Adj for Albumin 9.6, Total Bilirubin 0.7, AST 59 H, ALT 52, Alkaline Layla sphatase 121, Troponin I 0.037, B-Natriuretic Peptide 6536 H, Total Protein 7.4, Albumin 3.0 L 12/31/18 21:33: Creatine Kinase 41, CK-MB (CK-2) 1.8, CK-MB (CK-2) Rel Index 4.4 H, Troponin I 0.044 01/01/19 05:25: WBC 8.9, RBC 3.37 L, Hgb 9.7 L, Hct 30.2 L, MCV 89.6, MCH 28.8, MCHC 32.1, RDW 15.7 H, Plt Count 251, MPV 10.0, Immature Gran % (Auto) 0.30, Immature Gran # (Auto) 0.03, Neutrophils % 73.0, Lymphocytes % 10.9 L, Monocytes % 15.0 H, Eosinophils % 0.6, Basophils % 0.2, Nucleated RBC % 0.0, Neutrophils # 6.5 H, Lymphocytes # 0.97 L, Monocytes # 1.3 H, Eosinophils # 0.1, Absolute Basophils 0.0 01/01/19 05:25: Sodium 126 L, Plasma Sodium 125 L, Potassium 4.7 H, Chloride 92 L, Carbon Dioxide 26.3, Anion Gap 12.4, BUN 31 H, Creatinine 1.10, Est GFR (Non- Af Amer) 50 L D, BUN/Creatinine Ratio 28.2 H, Random Glucose 64 L D, Calcium 8.4, Calcium Adj for Albumin 9.0, Total Bilirubin 1.0, AST 95 H, ALT 63, Alkaline Phosphatase 120, Total Protein 7.4, Albumin 2.8 L 01/01/19 21:05: Random Glucose 43 L D 01/02/19 07:55: WBC 10.4, RBC 3.08 L, Hgb 8.9 L, Hct 27.9 L, MCV 90.6, MCH 28.9, MCHC 31.9 L, RDW 15.5 H, Plt Count 281, MPV 9.8, Immature Gran % (Auto) 0.50 H, Immature Gran # (Auto) 0.05 H, Neutrophils % 78.5 H, Lymphocytes % 8.8 L, Monocytes % 10.2 H, Eosinophils % 1.6, Basophils % 0.4, Nucleated RBC % 0.0, Neutrophils # 8.2 H, Lymphocytes # 0.91 L, Monocytes # 1.1 H, Eosinophils # 0.2, Absolute Basophils 0.0 01/02/19 07:55: Sodium 130 L, Plasma Sodium 132, Potassium 3.7 D, Chloride 91 L, Carbon Dioxide 31.6, Anion Gap 11.1, BUN 34 H, Creatinine 1.30, Est GFR (Non- Af Amer) 41 L, BUN/Creatinine Ratio 26.2 H, Random Glucose 241 H D, Calcium 8.1, B-Natriuretic Peptide 4650 H 01/02/19 07:55: Iron 21 L, TIBC 292, Transferrin % Sat 7 L 01/02/19 07:55: Ferritin 86, Vitamin B12 1412 H, Folate 17.7 Discharge Location: Home Disposition: Home self-care Condition: Stable Discharge Activity: Activity as tolerated Discharge Diet: Consistent carbs, Low salt Referrals: Kelechi Garcia MD [Primary Care Provider] - Additional Patient Instructions (free text): Please make TCM appointment unless fpc discharge. Thank you! Felecia at extension [phone]. Follow up with PCP in 1 week. Prescriptions (Any new or edited meds): Albuterol Sulfate [Albuterol Sulfate 2.5 MG/0.5ML] 2.5 mg INHALATION BID #7 vial.neb Ferrous Sulfate 325 mg PO BIDWM #60 tab Insulin Glargine,Hum.rec.anlog [Lantus] 20 unit SUBCUT DAILY #30 ml Furosemide [Lasix] 30 mg PO BID #60 tab Acetaminophen [Tylenol] 500 mg PO Q4H PRN #30 tab PRN Reason: Mild Pain (Pain Scale 1-3) Complete Home Medications List: Complete Home Medication List: Cholecalciferol (Vitamin D3) [Vitamin D3] 1,000 unit PO DAILY 11/12/16 Magnesium 400 mg PO DAILY 11/12/16 Cyanocobalamin [Vitamin B-12] 1,000 mcg IJ Q30D 11/15/17 Lisinopril [Zestril] 40 mg PO DAILY 11/15/17 Polyethylene Glycol 3350 [Miralax] 17 gm PO DAILY PRN 11/15/17 Saccharomyces Boulardii [Florastor] 250 mg PO DAILY 11/15/17 levothyroxine 125 mcg capsule 125 mcg PO DAILY #90 cap 05/13/18 ranitidine 150 mg tablet 150 mg PO DAILY #90 tab 07/01/18 blood sugar diagnostic strips See Dose Instructions .ROUTE .MEDSUPPLY #100 ea apixaban 5 mg tablet 5 mg PO BID #60 tab 10/23/18 oxycodone 5 mg tablet 2.5 mg .ROUTE HS PRN #30 tab 11/04/18 albuterol sulfate HFA 90 mcg/actuation aerosol inhaler 2 inh IH Q6H PRN #8 g Atorvastatin Calcium [Lipitor] 10 mg PO HS 12/31/18 Metoprolol Tartrate [Lopressor] 25 mg PO BID 12/31/18 Acetaminophen [Tylenol] 500 mg PO Q4H PRN #30 tab 01/02/19 Albuterol Sulfate [Albuterol Sulfate 2.5 MG/0.5ML] 2.5 mg INHALATION BID #7 vial.neb 01/02/19 Ferrous Sulfate 325 mg PO BIDWM #60 tab 01/02/19 Furosemide [Lasix] 30 mg PO BID #60 tab 01/02/19 Insulin Glargine,Hum.rec.anlog [Lantus] 20 unit SUBCUT DAILY #30 ml 01/02/19
[2019-01-02] MEDS ORDERED: FERROUS SULFATE 325 MG TABLET PO SCH (17:00)
[2019-01-02 18:11] VITALS: BP 122/72
[2019-01-04] MEDS ORDERED: CYANOCOBALAMIN 1,000 MCG/ML VIAL IJ SCH (09:00)
[2019-01-14] MEDS ORDERED: CYANOCOBALAMIN 1,000 MCG/ML VIAL IJ SCH (09:00)
== END 2019-01-02 18:00 | disposition home or self-care (01) | DRG 292 ==
LOC: MS 14:22 → ER 14:22 → MS 18:15
PROVIDERS: ADMIT Family Medicine; ATTEND Internal Medicine
DX: I48.2 Chronic atrial fibrillation; E87.1 Hypo-osmolality and hyponatremia; Z87.891 Personal history of nicotine dependence; Z79.4 Long term (current) use of insulin; E03.9 Hypothyroidism, unspecified; Z95.0 Presence of cardiac pacemaker; R53.1 Weakness; I50.9 Heart failure, unspecified; E78.5 Hyperlipidemia, unspecified; I50.32 Chronic diastolic (congestive) heart failure; J44.9 Chronic obstructive pulmonary disease, unspecified; K21.9 Gastro-esophageal reflux disease without esophagitis; E53.8 Deficiency of other specified B group vitamins; I11.0 Hypertensive heart disease with heart failure; Z95.1 Presence of aortocoronary bypass graft; E11.3513 Type 2 diabetes mellitus with proliferative diabetic retinopathy with macular edema, bilateral
CPT/HCPCS: 36415; 71020; 71046; 80048; 80053; 81001; 82550; 82553; 82607; 82728; 82746; 82947; 83519; 83540; 83550; 83880; 84484; 85025; 87081; 93005; 94640; 94664; 96374; 97110; 97116; 97161; 99285; G0378